=== PATIENT | male | born 1955 | race Caucasian/White ===

== ENCOUNTER 2017-03-15 07:30 | Inpatient (IN) | payer BC ==
[~2017-03-15 07:30] MED LIST: Bisacodyl 5 MG Tab PO PRN; EPINEPHrine 1:1000 1 MG/ML SDV ONE; Lactated Ringers 1,000 ML IV SCH; Lidocaine 1% 6 ML ONE; Lidocaine 1%/Sod Bicarbonate in NS 8.4% 1 ML Syringe IV PRN; Magnesium Hydroxide 400 MG/5 ML Susp 30 ML Cup PO PRN; Midazolam 1 MG/ML 2 ML SDV ONE; Ondansetron 4 MG/2 ML SDV IVPUSH PRN; Propofol 200 MG/20 ML SDV ONE; Rocuronium 50 MG/5 ML Vial ONE; Ropivacaine 0.5% 5 MG/ML 30 ML SDV ONE; Sodium Chloride 0.9% 10 ML Syringe FLUSH PRN; fentaNYL 250 MCG/5 ML SDV ONE
[2017-03-15] MEDS ORDERED: ceFAZolin 1 GM Vial ONE (07:37)
--- NOTE | 2017-03-15 08:04 | PCM.PREANE ---
Preanesthetic Assessment - Anesthesia/Transfusion/Family Hx Anesthesia History: Prior Anesthesia Without Reaction Family History of Anesthesia Reaction: No Transfusion History: No Prior Transfusion(s) - Review of Systems General: No Symptoms Pulmonary: No Symptoms Cardiovascular: No Symptoms Gastrointestinal: No symptoms Neurological: Numbness (fingers and toes) Other: Reports: Diabetes (gluco check 189 this AM) - Physical Assessment NPO Status Date: 03/14/17 NPO Status Time: 00:00 Pulse: 84 O2 Sat by Pulse Oximetry: 94 Respiratory Rate: 16 Blood Pressure: 146/75 Temperature: 36.8 C Height: 1.7 m Weight: 68.946 kg ASA Class: 3 Mental Status: Alert & Oriented x3 Airway Class: Mallampati = 1 Dentition: Reports: [place](s) Thyro-Mental Finger Breadths: 3 Mouth Opening Finger Breadths: 3 ROM/Head Extension: Full Lungs: Clear to auscultation, Normal respiratory effort Cardiovascular: Regular Rate, Regular Rhythm, No Murmurs - Lab Values: Laboratory Last Values MRSA (PCR) Negative 03/02/17 08:35 - Imaging/EKG Impressions: EKG on chart SR 83 - Allergies Allergies/Adverse Reactions: Allergies Allergy/AdvReac Type Severity Reaction Status Date / Time No Known Allergies Allergy Verified 03/12/17 10:43 - Anesthesia Plan Pre-Op Medication Ordered: None - Acknowledgements Anesthesia Type Planned: General Anesthesia, Regional Block (interscaline block for post op-pain control) Pt an Appropriate Candidate for the Planned Anesthesia: Yes Alternatives and Risks of Anesthesia Discussed w Pt/Guardian: Yes Pt/Guardian Understands and Agrees with Anesthesia Plan: Yes PreAnesthesia Questionnaire HEENT History: Reports: Hard of hearing, Impaired vision Other HEENT History: hearing aids, glasses Cardiovascular History: Reports: Hypertension Respiratory History: Reports: None Other Genitourinary History: testicular hypergonadotropic hypogoandism, erectile dysfunction [employer]ENTICE History: Reports: None Musculoskeletal History: Reports: Other (see below) Other Musculoskeletal History: total knee replacement, rotator cuff repair, C spine surgery, bilateral carpal tunnel surgery Neurological History: Reports: Neuropathy, diabetic Psychiatric History: Reports: Anxiety Endocrine/Metabolic History: Reports: Diabetes, type II Immunologic History: Reports: None Oncologic (Cancer) History: Reports: None Other Dermatologic History: L hand abcess from cat bite - Past Surgical History Head Surgeries/Procedures: Reports: None GI Surgical History: Reports: Colonoscopy - SUBSTANCE USE Smoking Status *Q: Current Some Day Smoker Tobacco Use Within Last Twelve Months: Snuff/Dip Second Hand Smoke Exposure: No Days Per Week of Alcohol Use: 0 Number of Drinks Per Day: 0 Total Drinks Per Week: 0 Recreational Drug Use History: No - HOME MEDS Home Medications: Home Meds Aspirin [Adult Low Dose Aspirin EC] 81 mg PO DAILY 09/10/15 [History] Cholecalciferol (Vitamin D3) [Vitamin D3] 5,000 unit PO DAILY 09/10/15 [History] LORazepam [Ativan] 1 mg PO BID 09/10/15 [History] Multivitamin [Multivitamins] 1 each PO DAILY 09/10/15 [History] [place]-3 Fatty Acids [[place]roll-3] 1 cap PO DAILY 09/10/15 [History] Sildenafil [Viagra] 50 mg PO ASDIRECTED 09/10/15 [History] Fluticasone Propionate [Flonase] 1 spray NASBOTH BEDTIME 03/12/17 [History] Insulin Aspart [NovoLOG] 10 units SQ TID 03/12/17 [History] Insulin Glargine,Hum.Rec.Anlog [Toujeo Solostar] 22 units SQ BEDTIME 03/12/17 [ History] Lisinopril 5 mg PO DAILY 03/12/17 [History] Pravastatin [Pravachol] 40 mg PO DAILY 03/12/17 [History] Sertraline [Zoloft] 50 mg PO DAILY 03/12/17 [History] - CURRENT (IN HOUSE) MEDS Current Meds: Current Medications Aspirin (Ecotrin) 325 mg PO DAILY KACI Bisacodyl (Dulcolax) 5 mg PO DAILY PRN PRN Reason: Constipation Morphine Sulfate 8 mg/Epinephrine HCl 0.3 mg/Cefuroxime Sodium 750 mg/Ketorolac Tromethamine 30 mg/Sodium Chloride 27.9 ml 0 mg .XX ONETIME ONE Stop: 03/15/17 09:01 Cyclobenzaprine HCl (Flexeril) 10 mg PO TID PRN PRN Reason: Spasms Docusate Sodium (Colace) 100 mg PO BID KACI Famotidine (Pepcid) 20 mg PO Q12H KACI Lactated Ringer's (Ringers, Lactated) 1,000 mls @ 125 mls/hr IV ASDIRECTED COUNT INCLUDES THE [facility] Cefazolin Sodium/Dextrose 2 gm (/ Premix) 50 mls @ 100 mls/hr IV Q8H COUNT INCLUDES THE [facility] Stop: 03/16/17 07:59 Lidocaine/Sodium Bicarbonate (Buffered Lidocaine 1% In Ns 8.4%) 0.25 ml IV ONETIME PRN PRN Reason: Prior to IV Start Stop: 03/15/17 16:00 Magnesium Hydroxide (Milk Of Magnesia) 30 ml PO BID PRN PRN Reason: Constipation Morphine Sulfate (Morphine) 2 mg IVPUSH Q2H PRN PRN Reason: Breakthrough Pain Naloxone HCl (Narcan) 0.1 mg IVPUSH Q5M PRN PRN Reason: Oversedation Stop: 03/15/17 07:06 Ondansetron HCl (Zofran) 4 mg IVPUSH Q6H PRN PRN Reason: Nausea/Vomiting Oxycodone/Acetaminophen (Percocet 325-5 Mg) 1 - 2 tab PO Q4H PRN PRN Reason: Pain Senna (Senna) 8.6 mg PO BID PRN PRN Reason: Constipation Sodium Chloride (Saline Flush) 10 ml FLUSH ASDIRECTED PRN PRN Reason: Keep Vein Open Stop: 03/15/17 18:00 Discontinued Medications Bupivacaine HCl (Marcaine 0.25%) Confirm Administered Dose 30 ml .ROUTE .STK- MED ONE Stop: 03/15/17 07:38 Cefazolin Sodium (Ancef) Confirm Administered Dose 2 gm .ROUTE .STK-MED ONE Stop: 03/15/17 07:17 Cefazolin Sodium (Ancef) Confirm Administered Dose 2 gm .ROUTE .STK-MED ONE Stop: 03/15/17 07:38 Epinephrine HCl (Adrenalin 1:1000) Confirm Administered Dose 1 mg .ROUTE .STK- MED ONE Stop: 03/15/17 07:07 Fentanyl (Sublimaze) Confirm Administered Dose 250 mcg .ROUTE .STK-MED ONE Stop: 03/15/17 07:12 Lidocaine HCl (Xylocaine-Mpf 1%) Confirm Administered Dose 6 mls @ as directed .ROUTE .STK-MED ONE Stop: 03/15/17 07:13 Iodine (Iodine 2% Mild Tincture) Confirm Administered Dose 30 ml .ROUTE .STK- MED ONE Stop: 03/15/17 07:38 Midazolam HCl (Versed 1 Mg/Ml) Confirm Administered Dose 2 mg .ROUTE .STK-MED ONE Stop: 03/15/17 07:12 Propofol (Diprivan 20 Ml) Confirm Administered Dose 200 mg .ROUTE .STK-MED ONE Stop: 03/15/17 07:12 Rocuronium [place] (Zemuron) Confirm Administered Dose 50 mg .ROUTE .STK-MED ONE Stop: 03/15/17 07:12 Ropivacaine (Naropin 0.5%) Confirm Administered Dose 30 ml .ROUTE .STK-MED ONE Stop: 03/15/17 07:08 Tranexamic Acid (Cyklokapron) Confirm Administered Dose 1,000 mg .ROUTE .ST- MED ONE Stop: 03/15/17 07:38
[2017-03-15] MEDS ORDERED: Morphine 8 MG, EPINEPHrine 0.3 MG, Cefuroxime 750 MG, Ketorolac 30 MG, Sodium Chloride ... ONE ×5 (09:00)
[2017-03-15] MEDS ORDERED: ePHEDrine/Normal Saline 25 MG/5 ML Syringe ONE (09:13)
[2017-03-15] MEDS: Bupivacaine 0.25% 30 ML SDV ONE ×2 (09:48→10:36)
[2017-03-15] MEDS ORDERED: Lactated Ringers 1,000 ML ONE (09:51)
[2017-03-15] MEDS: ceFAZolin 1 GM Vial ONE ×2 (09:53→10:31)
[2017-03-15] MEDS: Iodine/Sodium Iodide 2% Tincture 30 ML Bottle ONE ×2 (09:54→10:29)
[2017-03-15] MEDS ORDERED: SILDENAFIL 50 MG PO SCH (10:45)
[2017-03-15] MEDS ORDERED: fentaNYL 100 MCG/2 ML SDV IVPUSH PRN (11:24)
--- NOTE | 2017-03-15 11:26 | PCM.POSTAN ---
POST ANESTHESIA ASSESSMENT - MENTAL STATUS Mental Status: alert, oriented - VITAL SIGNS Pulse Rate: 99 SaO2: 100 Resp Rate: 17 Blood Pressure: 156/94 Temperature: 36.6 C - RESPIRATORY Respiratory Status: respiratory rate WNL, airway patent, O2 saturation stable - CARDIOVASCULAR CV Status: pulse rate WNL, blood pressure stable - GASTROINTESTINAL GI Status: no symptoms - PAIN Pain Score: 0 - POST OP HYDRATION Hydration Status: adequate & stable - OBSERVATIONS Free Text/Narrative:: no anesthesia complications noted
--- NOTE | 2017-03-15 11:56 | PCM.SN ---
- Free Text/Narrative Note: Note: 03/15/2017 1150 141/65 78 98% 14 Surgeon and pt request post-op pain control for right shoulder surgery risk of block failure, facial numbness, site infection, and chronic pain discussed with pt and agreed to proceed. All standard monitors est. EKG, BP, Pulse Ox, 2L O2 and 2ml versed, 2ml fentanyl pre-op dx. left shoulder arthroplasty post-op dx left reverse total shoulder pt for interscalene block placement all standard monitors est. pt ID time out performed IV sedation 2ml versed, 2ml fentanyl, 2L NC O2, sterile prep and drape of left neck and shoulder U/S placed with visualization of brachial plexus from clavicle to cricoid local skin infiltration 22ga. Stimplex A insulated needle visualized at brachial plexus nerve stimulator at .9 Rashida Amps stop at .4 Rashida Amps with good bicep twitch with 1ml NaCl and lose of twitch neg aspirations every 5ml of 0.5% ropivacaine and 1:200,000 epi total of 30ml injected all done with U/S guidance needle withdrawn no complications noted pt tolerated procedure well block settling in start procedure at 0815 end procedure at 0832 132/67 92 98% 14
[2017-03-15] MEDS ORDERED: Naloxone 0.4 MG/ML SDV IVPUSH PRN (12:00)
--- NOTE | 2017-03-15 12:10 | CR ---
Left shoulder: AP view of the left shoulder was obtained. Comparison: No previous radiograph, previous MRI left shoulder study of 10/23/16. Left shoulder prosthesis is seen. Components are aligned. Underlying bony structures are intact. Impression: 1. Satisfactory appearance of recently placed left shoulder prosthesis. Diagnostic code #2
--- NOTE | 2017-03-15 12:20 | CR ---
Left shoulder: Single fluoroscopic spot view was obtained of the left shoulder utilizing C-arm device in the operating suite. Left shoulder prosthesis is seen. Components are aligned. Underlying bony structures are grossly intact. Fluoroscopy time given as 2.9 seconds. Impression: 1. Fluoroscopic study showing left shoulder prosthesis. Diagnostic code #2
[2017-03-15] MEDS: Acetaminophen/oxyCODONE 325-5 MG Tab PO PRN ×3 (12:56→21:47)
[2017-03-15] MEDS ORDERED: Insulin Aspart 100 Units/ML 3 ML Pen SUBCUT SCH ×2 (15:00→17:00)
--- NOTE | 2017-03-15 15:10 | PCM.CONSN ---
- General Info Date of Service: 03/15/17 Admission Dx/Problem (Free Text): 61 year old male with PMH: DM, OA, HTN is post op s/p reverse left shoulder arthroplasty and subscapular repair. The patient has a history left shoulder rotator cuff tear. Functional Status: Reports: pain controlled, tolerating diet, ambulating, urinating - Review of Systems General: Reports: No Symptoms HEENT: Reports: no symptoms Pulmonary: Reports: no symptoms Cardiovascular: Reports: No Symptoms Gastrointestinal: Reports: No symptoms Genitourinary: Reports: no symptoms Musculoskeletal: Reports: no symptoms Skin: Reports: no symptoms Neurological: Reports: No Symptoms Psychiatric: Reports: no symptoms - Patient Data Vitals - most recent: Last Vital Signs Temp 36.6 C 03/15/17 12:09 Pulse 99 03/15/17 12:09 Resp 14 03/15/17 12:09 BP 132/76 03/15/17 12:09 Pulse Ox 95 03/15/17 12:09 Weight - most recent: 72.303 kg I&O - last 24 hours: Intake & Output 03/15/17 03/15/17 03/15/17 06:59 14:59 22:59 Intake Total 300 Output Total 150 Balance 150 Lab Results last 24 hrs: Laboratory Results - last 24 hr 03/15/17 Range/Units 11:46 POC Glucose 228 H (70-105) mg/dL Med Orders - Current: Current Medications Aspirin (Ecotrin) 325 mg PO DAILY KACI Bisacodyl (Dulcolax) 5 mg PO DAILY PRN PRN Reason: Constipation Cyclobenzaprine HCl (Flexeril) 10 mg PO TID PRN PRN Reason: Spasms Docusate Sodium (Colace) 100 mg PO BID KACI Famotidine (Pepcid) 20 mg PO Q12H KACI Fentanyl (Sublimaze) 50 mcg IVPUSH Q5M PRN PRN Reason: PAIN Stop: 03/15/17 18:00 Flunisolide (Nasalide Nasal [place]) 0 ml NASBOTH BEDTIME KACI Cefazolin Sodium/Dextrose 2 gm (/ Premix) 50 mls @ 100 mls/hr IV Q8H KACI Stop: 03/16/17 07:59 Insulin Aspart (Novolog) 10 unit SUBCUT TID [facility] Insulin Detemir (Levemir) 11 unit SUBCUT ACBREAKFASTANDBED [facility] Lisinopril (Prinivil) 5 mg PO DAILY [facility] Lorazepam (Ativan) 1 mg PO BID KACI Magnesium Hydroxide (Milk Of Magnesia) 30 ml PO BID PRN PRN Reason: Constipation Morphine Sulfate (Morphine) 2 mg IVPUSH Q2H PRN PRN Reason: Breakthrough Pain Ondansetron HCl (Zofran) 4 mg IVPUSH Q6H PRN PRN Reason: Nausea/Vomiting Oxycodone/Acetaminophen (Percocet 325-5 Mg) 1 - 2 tab PO Q4H PRN PRN Reason: Pain Last Admin: 03/15/17 12:56 Dose: 2 tab Senna (Senna) 8.6 mg PO BID PRN PRN Reason: Constipation Sertraline HCl (Zoloft) 50 mg PO DAILY KACI Simvastatin (Zocor) 20 mg PO DAILY [facility] Sodium Chloride (Saline Flush) 10 ml FLUSH ASDIRECTED PRN PRN Reason: Keep Vein Open Stop: 03/15/17 18:00 Discontinued Medications Bupivacaine HCl (Marcaine 0.25%) Confirm Administered Dose 30 ml .ROUTE .STK- MED ONE Stop: 03/15/17 07:38 Last Admin: 03/15/17 10:36 Dose: 30 ml Cefazolin Sodium (Ancef) Confirm Administered Dose 2 gm .ROUTE .STK-MED ONE Stop: 03/15/17 07:17 Last Admin: 03/15/17 10:31 Dose: 2 gm Cefazolin Sodium (Ancef) Confirm Administered Dose 2 gm .ROUTE .STK-MED ONE Stop: 03/15/17 07:38 Morphine Sulfate 8 mg/Epinephrine HCl 0.3 mg/Cefuroxime Sodium 750 mg/Ketorolac Tromethamine 30 mg/Sodium Chloride 27.9 ml 0 mg .XX ONETIME ONE Stop: 03/15/17 09:01 Ephedrine Sulfate (Ephedrine In Ns) Confirm Administered Dose 25 mg .ROUTE .STK- MED ONE Stop: 03/15/17 09:14 Epinephrine HCl (Adrenalin 1:1000) Confirm Administered Dose 1 mg .ROUTE .STK- MED ONE Stop: 03/15/17 07:07 Fentanyl (Sublimaze) Confirm Administered Dose 250 mcg .ROUTE .STK-MED ONE Stop: 03/15/17 07:12 Lactated Ringer's (Ringers, Lactated) 1,000 mls @ 125 mls/hr IV ASDIRECTED [facility] Last Admin: 03/15/17 08:05 Dose: 125 mls/hr Lidocaine HCl (Xylocaine-Mpf 1%) Confirm Administered Dose 6 mls @ as directed .ROUTE .STK-MED ONE Stop: 03/15/17 07:13 Lactated Ringer's (Ringers, Lactated) Confirm Administered Dose 1,000 mls @ as directed .ROUTE .STK-MED ONE Stop: 03/15/17 09:52 Iodine (Iodine 2% Mild Tincture) Confirm Administered Dose 30 ml .ROUTE .STK- MED ONE Stop: 03/15/17 07:38 Last Admin: 03/15/17 10:29 Dose: 18 ml Lidocaine/Sodium Bicarbonate (Buffered Lidocaine 1% In Ns 8.4%) 0.25 ml IV ONETIME PRN PRN Reason: Prior to IV Start Stop: 03/15/17 16:00 Last Admin: 03/15/17 08:04 Dose: 0.25 ml Midazolam HCl (Versed 1 Mg/Ml) Confirm Administered Dose 2 mg .ROUTE .STK-MED ONE Stop: 03/15/17 07:12 Naloxone HCl (Narcan) 0.1 mg IVPUSH Q5M PRN PRN Reason: Oversedation Stop: 03/15/17 12:16 Non-Formulary Medication (Sildenafil) 50 mg PO ASDIRECTED [facility] Propofol (Diprivan 20 Ml) Confirm Administered Dose 200 mg .ROUTE .STK-MED ONE Stop: 03/15/17 07:12 Rocuronium [place] (Zemuron) Confirm Administered Dose 50 mg .ROUTE .STK-MED ONE Stop: 03/15/17 07:12 Ropivacaine (Naropin 0.5%) Confirm Administered Dose 30 ml .ROUTE .STK-MED ONE Stop: 03/15/17 07:08 Tranexamic Acid (Cyklokapron) Confirm Administered Dose 1,000 mg .ROUTE .STK- MED ONE Stop: 03/15/17 07:38 Last Admin: 03/15/17 09:55 Dose: 1,000 mg - Exam Quality Assessment: urine catheter, DVT prophylaxis General: alert, oriented, cooperative, no acute distress HEENT: Pupils equal, Pupils reactive, EOMI Neck: supple, trachea midline Lungs: Normal respiratory effort Cardiovascular: Regular Rate, Regular Rhythm Abdomen: bowel sounds present, soft, no tenderness, no distension (Male) Exam: Deferred Back Exam: normal inspection Extremities: normal pulses Skin: warm Wound/Incisions: dressing dry and intact Neurological: no new focal deficit, normal speech Psy/Mental Status: alert, normal affect, normal mood Consult PN Assessment/Plan POD#: 0 Procedures: Procedures ASSAY OF BLOOD LIPOPROTEIN (07/10/15) ASSAY OF GONADOTROPIN (FSH) (07/30/14) ASSAY OF GONADOTROPIN (LH) (07/30/14) ASSAY OF LIPOPROTEIN (07/10/15) ASSAY OF TOTAL TESTOSTERONE (07/30/14) CHEST X-RAY 2VW FRONTAL&LATL (09/20/15) COMPLETE CBC W/AUTO DIFF WBC (09/16/15) COMPREHEN METABOLIC PANEL (09/16/15) DIAGNOSTIC COLONOSCOPY (09/11/15) GAIT TRAINING THERAPY (03/21/14) GLUCOSE BLOOD TEST (09/24/15) GLYCOSYLATED HEMOGLOBIN TEST (02/18/16) INCISE FINGER TENDON SHEATH (09/24/15) MANUAL THERAPY 1/> REGIONS (03/21/14) MASSAGE THERAPY (03/21/14) MICROALBUMIN QUANTITATIVE (07/10/15) MR-STAPH DNA AMP PROBE (09/16/15) MRI JOINT UPR EXTREM W/O DYE (10/23/16) PROTHROMBIN TIME (09/16/15) PT EVALUATION (03/07/14) RBC SED RATE AUTOMATED (02/25/15) ROUTINE VENIPUNCTURE (02/18/16) THERAPEUTIC EXERCISES (03/21/14) URINALYSIS AUTO W/O SCOPE (12/10/15) URINALYSIS AUTO W/SCOPE (07/10/15) X-RAY EXAM OF HAND (02/25/15) (1) Diabetes SNOMED Code(s): 16494252 Code(s): E11.9 - TYPE 2 DIABETES MELLITUS WITHOUT COMPLICATIONS Current Visit: Yes Qualifiers: Diabetes mellitus type: type 2 Diabetes mellitus complication detail: with diabetic retinopathy (2) Status post reverse total arthroplasty of left shoulder SNOMED Code(s): 989373796, 362760645 Code(s): Z96.612 - PRESENCE OF LEFT ARTIFICIAL SHOULDER JOINT Current Visit : Yes Problem List Initiated/Reviewed/Updated: Yes Plan: Impression: POST OP DAY 0 Left Reverse Total Shoulder Arthroplasty Chronic HTN DM II Hyperlipidemia Plan: IS/RT PT/OT DVT/Pain mgt CM/SW Home meds
[2017-03-15] MEDS: ceFAZolin 2 GM in Premix Bag 1 BAG IV SCH ×2 (16:03→23:07)
[2017-03-15] MEDS: Famotidine 20 MG Tab PO SCH (20:54)
[2017-03-15] MEDS: LORazepam 1 MG Tab PO SCH (20:55)
[2017-03-15] MEDS: Docusate Sodium 100 MG Cap PO SCH (20:55)
[2017-03-15] MEDS ORDERED: Sennosides 8.6 MG Tab PO PRN (21:00)
[2017-03-15] MEDS: Cyclobenzaprine 10 MG Tab PO PRN (21:47)
[2017-03-15] MEDS: Insulin Aspart 100 Units/ML 3 ML Pen SUBCUT SCH ×2 (21:47→22:01)
[2017-03-15] MEDS: Insulin Detemir 100 Units/ML 3 ML Pen SUBCUT SCH (21:48)
[2017-03-15] MEDS: Morphine 2 MG/ML Syringe IVPUSH PRN (23:20)
[2017-03-16] MEDS: Acetaminophen/oxyCODONE 325-5 MG Tab PO PRN ×3 (02:00→10:27)
[2017-03-16] MEDS: Morphine 2 MG/ML Syringe IVPUSH PRN ×2 (05:05→09:42)
[2017-03-16] MEDS: Cyclobenzaprine 10 MG Tab PO PRN (06:27)
[2017-03-16] MEDS: ceFAZolin 2 GM in Premix Bag 1 BAG IV SCH (06:30)
[2017-03-16] MEDS: Famotidine 20 MG Tab PO SCH (08:13)
[2017-03-16 08:14] VITALS: BP 129/69
[2017-03-16] MEDS: LORazepam 1 MG Tab PO SCH (08:14)
[2017-03-16] MEDS: Docusate Sodium 100 MG Cap PO SCH (08:14)
[2017-03-16] MEDS: Insulin Detemir 100 Units/ML 3 ML Pen SUBCUT SCH (08:15)
[2017-03-16] MEDS: Insulin Aspart 100 Units/ML 3 ML Pen SUBCUT SCH (08:15)
--- NOTE | 2017-03-16 08:58 | PCM.CONSN ---
- General Info Date of Service: 03/16/17 Admission Dx/Problem (Free Text): S/P left reverse total shoulder POD #[address] Olivera Doing well; pain under fair control. Working with OT/PT Hgb 12.9 VSS. Functional Status: Reports: pain controlled, tolerating diet, ambulating, urinating. Denies: new symptoms - Review of Systems General: Reports: No Symptoms HEENT: Reports: no symptoms Pulmonary: Reports: no symptoms Cardiovascular: Reports: No Symptoms Gastrointestinal: Reports: No symptoms Genitourinary: Reports: no symptoms Musculoskeletal: Reports: shoulder pain Skin: Reports: no symptoms Neurological: Reports: No Symptoms Psychiatric: Reports: no symptoms - Patient Data Vitals - most recent: Last Vital Signs Temp 98.8 F 03/16/17 08:12 Pulse 113 H 03/16/17 08:12 Resp 14 03/16/17 08:12 BP 129/69 03/16/17 08:14 Pulse Ox 93 L 03/16/17 08:12 Weight - most recent: 160 lb 6.4 oz I&O - last 24 hours: Intake & Output 03/15/17 03/16/17 03/16/17 22:59 06:59 14:59 Intake Total 180 1400 Output Total 600 1100 Balance -420 300 Lab Results last 24 hrs: Laboratory Results - last 24 hr 03/15/17 03/15/17 03/15/17 Range/Units 11:46 15:16 17:32 WBC (4.23-9.07) K/mm3 RBC (4.63-6.08) M/mm3 Hgb (13.7-17.5) gm/L Hct (40.1-51.0) % MCV (79.0-92.2) fl MCH (25.7-32.2) pg MCHC (32.2-35.5) g/dl RDW Std Deviation (35.1-43.9) fL Plt Count (163-337) K/mm3 MPV (9.4-12.3) fl Neut % (Auto) (34.0-67.9) % Lymph % (Auto) (21.8-53.1) % [place] % (Auto) (5.3-12.2) % Eos % (Auto) (0.8-7.0) Baso % (Auto) (0.1-1.2) % Neut # (Auto) (1.78-5.38) K/mm3 Lymph # (Auto) (1.32-3.57) K/mm3 [place] # (Auto) (0.30-0.82) K/mm3 Eos # (Auto) (0.04-0.54) K/mm3 Baso # (Auto) (0.01-0.08) K/mm3 Manual Slide Review Sodium (136-145) mEq/L Potassium (3.5-5.1) mEq/L Chloride (98-107) mEq/L Carbon Dioxide (21-32) mEq/L Anion Gap (5-15) BUN (7-18) mg/dL Creatinine (0.7-1.3) mg/dL Est Cr Clr Drug Dosing mL/min Estimated GFR (MDRD) (>60) mL/min BUN/Creatinine Ratio (14-18) Glucose (74-106) mg/dL POC Glucose 228 H 199 H 238 H (70-105) mg/dL Calcium (8.5-10.1) mg/dL Total Bilirubin (0.2-1.0) mg/dL AST (15-37) U/L ALT (16-63) U/L Alkaline Phosphatase (46-116) U/L Total Protein (6.4-8.2) g/dl Albumin (3.4-5.0) g/dl Globulin gm/dL Albumin/Globulin Ratio (1-2) 03/15/17 03/16/17 03/16/17 Range/Units 21:20 04:48 04:48 WBC 10.08 H (4.23-9.07) K/mm3 RBC 4.30 L (4.63-6.08) M/mm3 Hgb 12.9 L (13.7-17.5) gm/L Hct 37.8 L (40.1-51.0) % MCV 87.9 (79.0-92.2) fl MCH 30.0 (25.7-32.2) pg MCHC 34.1 (32.2-35.5) g/dl RDW Std Deviation 39.6 (35.1-43.9) fL Plt Count 168 (163-337) K/mm3 MPV 8.9 L (9.4-12.3) fl Neut % (Auto) 78.9 H (34.0-67.9) % Lymph % (Auto) 8.3 L (21.8-53.1) % [place] % (Auto) 12.5 H (5.3-12.2) % Eos % (Auto) 0.1 L (0.8-7.0) Baso % (Auto) 0.0 L (0.1-1.2) % Neut # (Auto) 7.95 H (1.78-5.38) K/mm3 Lymph # (Auto) 0.84 L (1.32-3.57) K/mm3 [place] # (Auto) 1.26 H (0.30-0.82) K/mm3 Eos # (Auto) 0.01 L (0.04-0.54) K/mm3 Baso # (Auto) 0.00 L (0.01-0.08) K/mm3 Manual Slide Review Abnormal smear Sodium 134 L (136-145) mEq/L Potassium 4.1 (3.5-5.1) mEq/L Chloride 100 (98-107) mEq/L Carbon Dioxide 27 (21-32) mEq/L Anion Gap 11.1 (5-15) BUN 12 (7-18) mg/dL Creatinine 0.9 (0.7-1.3) mg/dL Est Cr Clr Drug Dosing 81.60 mL/min Estimated GFR (MDRD) > 60 (>60) mL/min BUN/Creatinine Ratio 13.3 L (14-18) Glucose 211 H (74-106) mg/dL POC Glucose 176 H (70-105) mg/dL Calcium 8.6 (8.5-10.1) mg/dL Total Bilirubin 0.7 (0.2-1.0) mg/dL AST 14 L (15-37) U/L ALT 23 (16-63) U/L Alkaline Phosphatase 74 (46-116) U/L Total Protein 6.3 L (6.4-8.2) g/dl Albumin 3.5 (3.4-5.0) g/dl Globulin 2.8 gm/dL Albumin/Globulin Ratio 1.3 (1-2) 03/16/17 Range/Units 06:46 WBC (4.23-9.07) K/mm3 RBC (4.63-6.08) M/mm3 Hgb (13.7-17.5) gm/L Hct (40.1-51.0) % MCV (79.0-92.2) fl MCH (25.7-32.2) pg MCHC (32.2-35.5) g/dl RDW Std Deviation (35.1-43.9) fL Plt Count (163-337) K/mm3 MPV (9.4-12.3) fl Neut % (Auto) (34.0-67.9) % Lymph % (Auto) (21.8-53.1) % [place] % (Auto) (5.3-12.2) % Eos % (Auto) (0.8-7.0) Baso % (Auto) (0.1-1.2) % Neut # (Auto) (1.78-5.38) K/mm3 Lymph # (Auto) (1.32-3.57) K/mm3 [place] # (Auto) (0.30-0.82) K/mm3 Eos # (Auto) (0.04-0.54) K/mm3 Baso # (Auto) (0.01-0.08) K/mm3 Manual Slide Review Sodium (136-145) mEq/L Potassium (3.5-5.1) mEq/L Chloride (98-107) mEq/L Carbon Dioxide (21-32) mEq/L Anion Gap (5-15) BUN (7-18) mg/dL Creatinine (0.7-1.3) mg/dL Est Cr Clr Drug Dosing mL/min Estimated GFR (MDRD) (>60) mL/min BUN/Creatinine Ratio (14-18) Glucose (74-106) mg/dL POC Glucose 201 H (70-105) mg/dL Calcium (8.5-10.1) mg/dL Total Bilirubin (0.2-1.0) mg/dL AST (15-37) U/L ALT (16-63) U/L Alkaline Phosphatase (46-116) U/L Total Protein (6.4-8.2) g/dl Albumin (3.4-5.0) g/dl Globulin gm/dL Albumin/Globulin Ratio (1-2) Med Orders - Current: Current Medications Aspirin (Ecotrin) 325 mg PO DAILY [facility] Last Admin: 03/16/17 08:14 Dose: 325 mg Bisacodyl (Dulcolax) 5 mg PO DAILY PRN PRN Reason: Constipation Cyclobenzaprine HCl (Flexeril) 10 mg PO TID PRN PRN Reason: Spasms Last Admin: 03/16/17 06:27 Dose: 10 mg Docusate Sodium (Colace) 100 mg PO BID [facility] Last Admin: 03/16/17 08:14 Dose: 100 mg Famotidine (Pepcid) 20 mg PO Q12H [facility] Last Admin: 03/16/17 08:13 Dose: 20 mg Flunisolide (Nasalide Nasal [place]) 0 ml NASBOTH BEDTIME [facility] Last Admin: 03/15/17 20:56 Dose: 2 spray Insulin Aspart (Novolog) 0 unit SUBCUT QIDACANDBED [facility] PRN Reason: Protocol Last Admin: 03/16/17 08:15 Dose: 4 units Insulin Detemir (Levemir) 11 unit SUBCUT ACBREAKFASTANDBED [facility] Last Admin: 03/16/17 08:15 Dose: 11 units Lisinopril (Prinivil) 5 mg PO DAILY [facility] Last Admin: 03/16/17 08:14 Dose: 5 mg Lorazepam (Ativan) 1 mg PO BID [facility] Last Admin: 03/16/17 08:14 Dose: 1 mg Magnesium Hydroxide (Milk Of Magnesia) 30 ml PO BID PRN PRN Reason: Constipation Morphine Sulfate (Morphine) 2 mg IVPUSH Q2H PRN PRN Reason: Breakthrough Pain Last Admin: 03/16/17 05:05 Dose: 2 mg Ondansetron HCl (Zofran) 4 mg IVPUSH Q6H PRN PRN Reason: Nausea/Vomiting Last Admin: 03/15/17 21:47 Dose: 4 mg Oxycodone/Acetaminophen (Percocet 325-5 Mg) 1 - 2 tab PO Q4H PRN PRN Reason: Pain Last Admin: 03/16/17 06:27 Dose: 2 tab Senna (Senna) 8.6 mg PO BID PRN PRN Reason: Constipation Sertraline HCl (Zoloft) 50 mg PO DAILY [facility] Last Admin: 03/16/17 08:14 Dose: 50 mg Simvastatin (Zocor) 20 mg PO DAILY [facility] Last Admin: 03/16/17 08:14 Dose: 20 mg Discontinued Medications Bupivacaine HCl (Marcaine 0.25%) Confirm Administered Dose 30 ml .ROUTE .STK- MED ONE Stop: 03/15/17 07:38 Last Admin: 03/15/17 10:36 Dose: 30 ml Cefazolin Sodium (Ancef) Confirm Administered Dose 2 gm .ROUTE .STK-MED ONE Stop: 03/15/17 07:17 Last Admin: 03/15/17 10:31 Dose: 2 gm Cefazolin Sodium (Ancef) Confirm Administered Dose 2 gm .ROUTE .STK-MED ONE Stop: 03/15/17 07:38 Morphine Sulfate 8 mg/Epinephrine HCl 0.3 mg/Cefuroxime Sodium 750 mg/Ketorolac Tromethamine 30 mg/Sodium Chloride 27.9 ml 0 mg .XX ONETIME ONE Stop: 03/15/17 09:01 Last Admin: 03/15/17 19:00 Dose: Not Given Ephedrine Sulfate (Ephedrine In Ns) Confirm Administered Dose 25 mg .ROUTE .STK- MED ONE Stop: 03/15/17 09:14 Epinephrine HCl (Adrenalin 1:1000) Confirm Administered Dose 1 mg .ROUTE .STK- MED ONE Stop: 03/15/17 07:07 Fentanyl (Sublimaze) Confirm Administered Dose 250 mcg .ROUTE .STK-MED ONE Stop: 03/15/17 07:12 Fentanyl (Sublimaze) 50 mcg IVPUSH Q5M PRN PRN Reason: PAIN Stop: 03/15/17 18:00 Lactated Ringer's (Ringers, Lactated) 1,000 mls @ 125 mls/hr IV ASDIRECTED [facility] Last Admin: 03/15/17 08:05 Dose: 125 mls/hr Cefazolin Sodium/Dextrose 2 gm (/ Premix) 50 mls @ 100 mls/hr IV Q8H [facility] Stop: 03/16/17 07:59 Last Admin: 03/16/17 06:30 Dose: 100 mls/hr Lidocaine HCl (Xylocaine-Mpf 1%) Confirm Administered Dose 6 mls @ as directed .ROUTE .STK-MED ONE Stop: 03/15/17 07:13 Lactated Ringer's (Ringers, Lactated) Confirm Administered Dose 1,000 mls @ as directed .ROUTE .STK-MED ONE Stop: 03/15/17 09:52 Insulin Aspart (Novolog) 10 unit SUBCUT TID [facility] Last Admin: 03/15/17 16:04 Dose: Not Given Insulin Aspart (Novolog) 10 unit SUBCUT TIDMEALS [facility] Last Admin: 03/15/17 17:52 Dose: 8 units Iodine (Iodine 2% Mild Tincture) Confirm Administered Dose 30 ml .ROUTE .STK- MED ONE Stop: 03/15/17 07:38 Last Admin: 03/15/17 10:29 Dose: 18 ml Lidocaine/Sodium Bicarbonate (Buffered Lidocaine 1% In Ns 8.4%) 0.25 ml IV ONETIME PRN PRN Reason: Prior to IV Start Stop: 03/15/17 16:00 Last Admin: 03/15/17 08:04 Dose: 0.25 ml Midazolam HCl (Versed 1 Mg/Ml) Confirm Administered Dose 2 mg .ROUTE .STK-MED ONE Stop: 03/15/17 07:12 Naloxone HCl (Narcan) 0.1 mg IVPUSH Q5M PRN PRN Reason: Oversedation Stop: 03/15/17 12:16 Non-Formulary Medication (Sildenafil) 50 mg PO ASDIRECTED [facility] Propofol (Diprivan 20 Ml) Confirm Administered Dose 200 mg .ROUTE .STK-MED ONE Stop: 03/15/17 07:12 Rocuronium [place] (Zem[place]) Confirm Administered Dose 50 mg .ROUTE .STK-MED ONE Stop: 03/15/17 07:12 Ropivacaine (Naropin 0.5%) Confirm Administered Dose 30 ml .ROUTE .STK-MED ONE Stop: 03/15/17 07:08 Sodium Chloride (Saline Flush) 10 ml FLUSH ASDIRECTED PRN PRN Reason: Keep Vein Open Stop: 03/15/17 18:00 Tranexamic Acid (Cyklokapron) Confirm Administered Dose 1,000 mg .ROUTE .STK- MED ONE Stop: 03/15/17 07:38 Last Admin: 03/15/17 09:55 Dose: 1,000 mg - Exam Quality Assessment: DVT prophylaxis General: alert, oriented, cooperative, no acute distress HEENT: Pupils equal, Pupils reactive, EOMI, Mucous membr. moist/pink Neck: supple Lungs: Clear to auscultation, Normal respiratory effort Cardiovascular: Regular Rate, Regular Rhythm Abdomen: bowel sounds present, soft, no tenderness (Male) Exam: Deferred Extremities: no edema Peripheral Pulses: 1+: dorsalis pedis (L), dorsalis pedis (R), 2+: radial (L), radial (R) Skin: warm, dry Wound/Incisions: dressing dry and intact Neurological: no new focal deficit Psy/Mental Status: alert, normal affect, normal mood Consult PN Assessment/Plan POD#: 1 Procedures: Procedures ASSAY OF BLOOD LIPOPROTEIN (07/10/15) ASSAY OF GONADOTROPIN (FSH) (07/30/14) ASSAY OF GONADOTROPIN (LH) (07/30/14) ASSAY OF LIPOPROTEIN (07/10/15) ASSAY OF TOTAL TESTOSTERONE (07/30/14) CHEST X-RAY 2VW FRONTAL&LATL (09/20/15) COMPLETE CBC W/AUTO DIFF WBC (09/16/15) COMPREHEN METABOLIC PANEL (09/16/15) DIAGNOSTIC COLONOSCOPY (09/11/15) GAIT TRAINING THERAPY (03/21/14) GLUCOSE BLOOD TEST (09/24/15) GLYCOSYLATED HEMOGLOBIN TEST (02/18/16) INCISE FINGER TENDON SHEATH (09/24/15) MANUAL THERAPY 1/> REGIONS (03/21/14) MASSAGE THERAPY (03/21/14) MICROALBUMIN QUANTITATIVE (07/10/15) MR-STAPH DNA AMP PROBE (09/16/15) MRI JOINT UPR EXTREM W/O DYE (10/23/16) PROTHROMBIN TIME (09/16/15) PT EVALUATION (03/07/14) RBC SED RATE AUTOMATED (02/25/15) ROUTINE VENIPUNCTURE (02/18/16) THERAPEUTIC EXERCISES (03/21/14) URINALYSIS AUTO W/O SCOPE (12/10/15) URINALYSIS AUTO W/SCOPE (07/10/15) X-RAY EXAM OF HAND (02/25/15) (1) Status post reverse total arthroplasty of left shoulder SNOMED Code(s): 126404930, 979820347 Code(s): Z96.612 - PRESENCE OF LEFT ARTIFICIAL SHOULDER JOINT Priority: High Current Visit: Yes (2) Osteoarthritis SNOMED Code(s): 152699773 Code(s): M19.90 - UNSPECIFIED OSTEOARTHRITIS, UNSPECIFIED SITE Priority: High Current Visit: Yes Qualifiers: Osteoarthritis location: shoulder Osteoarthritis type: primary Laterality : left Qualified Code(s): M19.012 - Primary osteoarthritis, left shoulder (3) HLD (hyperlipidemia) SNOMED Code(s): 38064646 Code(s): E78.5 - HYPERLIPIDEMIA, UNSPECIFIED Priority: Medium Current Visit: No Qualifiers: Hyperlipidemia type: unspecified Qualified Code(s): E78.5 - Hyperlipidemia , unspecified (4) HTN (hypertension) SNOMED Code(s): 92390533 Code(s): I10 - ESSENTIAL (PRIMARY) HYPERTENSION Priority: Medium Current Visit: No Qualifiers: Hypertension type: essential hypertension Qualified Code(s): I10 - Essential (primary) hypertension (5) Diabetes SNOMED Code(s): 13048382 Code(s): E11.9 - TYPE 2 DIABETES MELLITUS WITHOUT COMPLICATIONS Priority: Medium Current Visit: No Qualifiers: Diabetes mellitus type: type 2 Diabetes mellitus complication detail: with diabetic retinopathy Proliferative retinopathy type: unspecified Problem List Initiated/Reviewed/Updated: Yes Plan: I/P: S/P Lt reverse total shoulder with Dr. Olivera-- POD #1 -Pain management and DVT prophylaxis per primary team- Orthopedics -PT/OT -IS/RT -VSS -Hgb 12.9 Chronic conditions: DM- cont home meds; sugars 200's HTN- stable HLD Other: GI prophylax with pepcid CM/SW for assistance with DC planning- plans DC home with family OK to dc home today from Hospitalist standpoint; medically stable. Patient is a Full Code. Thank you for allowing us to participate in patient's care; do not hesitate to contact with questions/concerns.
[2017-03-16] MEDS ORDERED: Sertraline 50 MG Tab PO SCH (09:00)
[2017-03-16] MEDS ORDERED: Simvastatin 20 MG Tab PO SCH (09:00)
[2017-03-16] MEDS ORDERED: Lisinopril 5 MG Tab PO SCH (09:00)
[2017-03-16] MEDS ORDERED: Aspirin 325 MG Tab.EC PO SCH (09:00)
--- NOTE | 2017-03-16 09:35 | PCM48HPAN ---
Post Anesthesia Note - EVALUATION WITHIN 48HRS OF ANESTHETIC Vital Signs in Normal Range: Yes Patient Participated in Evaluation: Yes Respiratory Function Stable: Yes Airway Patent: Yes Cardiovascular Function Stable: Yes Hydration Status Stable: Yes Pain Control Satisfactory: No (see note) Nausea and Vomiting Control Satisfactory: Yes Mental Status Recovered: Yes - COMMENTS/OBSERVATIONS Free Text/Narrative:: Patient states miscommunication noted per nursing staff last night on when he could have additional pain medicine. Charge nurse Melyssa informed, and nurse responsibe will be educated. No other c/o noted at this time.
--- NOTE | 2017-03-16 10:30 | PCM.SURGPN ---
- General Info Date of Service: 03/16/17 POD#: 1 Functional Status: Reports: pain controlled, tolerating diet, ambulating, urinating. Denies: new symptoms - Review of Systems Musculoskeletal: Reports: other (The pt reports his pain is under better control this morning.) - Patient Data Vitals - most recent: Last Vital Signs Temp 98.8 F 03/16/17 08:12 Pulse 113 H 03/16/17 08:12 Resp 14 03/16/17 08:12 BP 129/69 03/16/17 08:14 Pulse Ox 93 L 03/16/17 08:12 Weight - most recent: 160 lb 6.4 oz I&O - last 24 hours: Intake & Output 03/15/17 03/16/17 03/16/17 22:59 06:59 14:59 Intake Total 180 1400 Output Total 600 1100 Balance -420 300 Lab Results last 24 hrs: Laboratory Results - last 24 hr 03/15/17 03/15/17 03/15/17 Range/Units 11:46 15:16 17:32 WBC (4.23-9.07) K/mm3 RBC (4.63-6.08) M/mm3 Hgb (13.7-17.5) gm/L Hct (40.1-51.0) % MCV (79.0-92.2) fl MCH (25.7-32.2) pg MCHC (32.2-35.5) g/dl RDW Std Deviation (35.1-43.9) fL Plt Count (163-337) K/mm3 MPV (9.4-12.3) fl Neut % (Auto) (34.0-67.9) % Lymph % (Auto) (21.8-53.1) % [place] % (Auto) (5.3-12.2) % Eos % (Auto) (0.8-7.0) Baso % (Auto) (0.1-1.2) % Neut # (Auto) (1.78-5.38) K/mm3 Lymph # (Auto) (1.32-3.57) K/mm3 [place] # (Auto) (0.30-0.82) K/mm3 Eos # (Auto) (0.04-0.54) K/mm3 Baso # (Auto) (0.01-0.08) K/mm3 Manual Slide Review Sodium (136-145) mEq/L Potassium (3.5-5.1) mEq/L Chloride (98-107) mEq/L Carbon Dioxide (21-32) mEq/L Anion Gap (5-15) BUN (7-18) mg/dL Creatinine (0.7-1.3) mg/dL Est Cr Clr Drug Dosing mL/min Estimated GFR (MDRD) (>60) mL/min BUN/Creatinine Ratio (14-18) Glucose (74-106) mg/dL POC Glucose 228 H 199 H 238 H (70-105) mg/dL Calcium (8.5-10.1) mg/dL Total Bilirubin (0.2-1.0) mg/dL AST (15-37) U/L ALT (16-63) U/L Alkaline Phosphatase (46-116) U/L Total Protein (6.4-8.2) g/dl Albumin (3.4-5.0) g/dl Globulin gm/dL Albumin/Globulin Ratio (1-2) 03/15/17 03/16/17 03/16/17 Range/Units 21:20 04:48 04:48 WBC 10.08 H (4.23-9.07) K/mm3 RBC 4.30 L (4.63-6.08) M/mm3 Hgb 12.9 L (13.7-17.5) gm/L Hct 37.8 L (40.1-51.0) % MCV 87.9 (79.0-92.2) fl MCH 30.0 (25.7-32.2) pg MCHC 34.1 (32.2-35.5) g/dl RDW Std Deviation 39.6 (35.1-43.9) fL Plt Count 168 (163-337) K/mm3 MPV 8.9 L (9.4-12.3) fl Neut % (Auto) 78.9 H (34.0-67.9) % Lymph % (Auto) 8.3 L (21.8-53.1) % [place] % (Auto) 12.5 H (5.3-12.2) % Eos % (Auto) 0.1 L (0.8-7.0) Baso % (Auto) 0.0 L (0.1-1.2) % Neut # (Auto) 7.95 H (1.78-5.38) K/mm3 Lymph # (Auto) 0.84 L (1.32-3.57) K/mm3 [place] # (Auto) 1.26 H (0.30-0.82) K/mm3 Eos # (Auto) 0.01 L (0.04-0.54) K/mm3 Baso # (Auto) 0.00 L (0.01-0.08) K/mm3 Manual Slide Review Abnormal smear Sodium 134 L (136-145) mEq/L Potassium 4.1 (3.5-5.1) mEq/L Chloride 100 (98-107) mEq/L Carbon Dioxide 27 (21-32) mEq/L Anion Gap 11.1 (5-15) BUN 12 (7-18) mg/dL Creatinine 0.9 (0.7-1.3) mg/dL Est Cr Clr Drug Dosing 81.60 mL/min Estimated GFR (MDRD) > 60 (>60) mL/min BUN/Creatinine Ratio 13.3 L (14-18) Glucose 211 H (74-106) mg/dL POC Glucose 176 H (70-105) mg/dL Calcium 8.6 (8.5-10.1) mg/dL Total Bilirubin 0.7 (0.2-1.0) mg/dL AST 14 L (15-37) U/L ALT 23 (16-63) U/L Alkaline Phosphatase 74 (46-116) U/L Total Protein 6.3 L (6.4-8.2) g/dl Albumin 3.5 (3.4-5.0) g/dl Globulin 2.8 gm/dL Albumin/Globulin Ratio 1.3 (1-2) 03/16/17 Range/Units 06:46 WBC (4.23-9.07) K/mm3 RBC (4.63-6.08) M/mm3 Hgb (13.7-17.5) gm/L Hct (40.1-51.0) % MCV (79.0-92.2) fl MCH (25.7-32.2) pg MCHC (32.2-35.5) g/dl RDW Std Deviation (35.1-43.9) fL Plt Count (163-337) K/mm3 MPV (9.4-12.3) fl Neut % (Auto) (34.0-67.9) % Lymph % (Auto) (21.8-53.1) % [place] % (Auto) (5.3-12.2) % Eos % (Auto) (0.8-7.0) Baso % (Auto) (0.1-1.2) % Neut # (Auto) (1.78-5.38) K/mm3 Lymph # (Auto) (1.32-3.57) K/mm3 [place] # (Auto) (0.30-0.82) K/mm3 Eos # (Auto) (0.04-0.54) K/mm3 Baso # (Auto) (0.01-0.08) K/mm3 Manual Slide Review Sodium (136-145) mEq/L Potassium (3.5-5.1) mEq/L Chloride (98-107) mEq/L Carbon Dioxide (21-32) mEq/L Anion Gap (5-15) BUN (7-18) mg/dL Creatinine (0.7-1.3) mg/dL Est Cr Clr Drug Dosing mL/min Estimated GFR (MDRD) (>60) mL/min BUN/Creatinine Ratio (14-18) Glucose (74-106) mg/dL POC Glucose 201 H (70-105) mg/dL Calcium (8.5-10.1) mg/dL Total Bilirubin (0.2-1.0) mg/dL AST (15-37) U/L ALT (16-63) U/L Alkaline Phosphatase (46-116) U/L Total Protein (6.4-8.2) g/dl Albumin (3.4-5.0) g/dl Globulin gm/dL Albumin/Globulin Ratio (1-2) Med Orders - Current: Current Medications Aspirin (Ecotrin) 325 mg PO DAILY [facility] Last Admin: 03/16/17 08:14 Dose: 325 mg Bisacodyl (Dulcolax) 5 mg PO DAILY PRN PRN Reason: Constipation Cyclobenzaprine HCl (Flexeril) 10 mg PO TID PRN PRN Reason: Spasms Last Admin: 03/16/17 06:27 Dose: 10 mg Docusate Sodium (Colace) 100 mg PO BID [facility] Last Admin: 03/16/17 08:14 Dose: 100 mg Famotidine (Pepcid) 20 mg PO Q12H [facility] Last Admin: 03/16/17 08:13 Dose: 20 mg Flunisolide (Nasalide Nasal [place]) 0 ml NASBOTH BEDTIME [facility] Last Admin: 03/15/17 20:56 Dose: 2 spray Insulin Aspart (Novolog) 0 unit SUBCUT QIDACANDBED [facility] PRN Reason: Protocol Last Admin: 03/16/17 08:15 Dose: 4 units Insulin Detemir (Levemir) 11 unit SUBCUT ACBREAKFASTANDBED [facility] Last Admin: 03/16/17 08:15 Dose: 11 units Lisinopril (Prinivil) 5 mg PO DAILY [facility] Last Admin: 03/16/17 08:14 Dose: 5 mg Lorazepam (Ativan) 1 mg PO BID [facility] Last Admin: 03/16/17 08:14 Dose: 1 mg Magnesium Hydroxide (Milk Of Magnesia) 30 ml PO BID PRN PRN Reason: Constipation Morphine Sulfate (Morphine) 2 mg IVPUSH Q2H PRN PRN Reason: Breakthrough Pain Last Admin: 03/16/17 09:42 Dose: 2 mg Ondansetron HCl (Zofran) 4 mg IVPUSH Q6H PRN PRN Reason: Nausea/Vomiting Last Admin: 03/15/17 21:47 Dose: 4 mg Oxycodone/Acetaminophen (Percocet 325-5 Mg) 1 - 2 tab PO Q4H PRN PRN Reason: Pain Last Admin: 03/16/17 10:27 Dose: 2 tab Senna (Senna) 8.6 mg PO BID PRN PRN Reason: Constipation Sertraline HCl (Zoloft) 50 mg PO DAILY [facility] Last Admin: 03/16/17 08:14 Dose: 50 mg Simvastatin (Zocor) 20 mg PO DAILY [facility] Last Admin: 03/16/17 08:14 Dose: 20 mg Discontinued Medications Bupivacaine HCl (Marcaine 0.25%) Confirm Administered Dose 30 ml .ROUTE .STK- MED ONE Stop: 03/15/17 07:38 Last Admin: 03/15/17 10:36 Dose: 30 ml Cefazolin Sodium (Ancef) Confirm Administered Dose 2 gm .ROUTE .STK-MED ONE Stop: 03/15/17 07:17 Last Admin: 03/15/17 10:31 Dose: 2 gm Cefazolin Sodium (Ancef) Confirm Administered Dose 2 gm .ROUTE .STK-MED ONE Stop: 03/15/17 07:38 Morphine Sulfate 8 mg/Epinephrine HCl 0.3 mg/Cefuroxime Sodium 750 mg/Ketorolac Tromethamine 30 mg/Sodium Chloride 27.9 ml 0 mg .XX ONETIME ONE Stop: 03/15/17 09:01 Last Admin: 03/15/17 19:00 Dose: Not Given Ephedrine Sulfate (Ephedrine In Ns) Confirm Administered Dose 25 mg .ROUTE .STK- MED ONE Stop: 03/15/17 09:14 Epinephrine HCl (Adrenalin 1:1000) Confirm Administered Dose 1 mg .ROUTE .STK- MED ONE Stop: 03/15/17 07:07 Fentanyl (Sublimaze) Confirm Administered Dose 250 mcg .ROUTE .STK-MED ONE Stop: 03/15/17 07:12 Fentanyl (Sublimaze) 50 mcg IVPUSH Q5M PRN PRN Reason: PAIN Stop: 03/15/17 18:00 Lactated Ringer's (Ringers, Lactated) 1,000 mls @ 125 mls/hr IV ASDIRECTED [facility] Last Admin: 03/15/17 08:05 Dose: 125 mls/hr Cefazolin Sodium/Dextrose 2 gm (/ Premix) 50 mls @ 100 mls/hr IV Q8H [facility] Stop: 03/16/17 07:59 Last Admin: 03/16/17 06:30 Dose: 100 mls/hr Lidocaine HCl (Xylocaine-Mpf 1%) Confirm Administered Dose 6 mls @ as directed .ROUTE .STK-MED ONE Stop: 03/15/17 07:13 Lactated Ringer's (Ringers, Lactated) Confirm Administered Dose 1,000 mls @ as directed .ROUTE .STK-MED ONE Stop: 03/15/17 09:52 Insulin Aspart (Novolog) 10 unit SUBCUT TID [facility] Last Admin: 03/15/17 16:04 Dose: Not Given Insulin Aspart (Novolog) 10 unit SUBCUT TIDMEALS [facility] Last Admin: 03/15/17 17:52 Dose: 8 units Iodine (Iodine 2% Mild Tincture) Confirm Administered Dose 30 ml .ROUTE .STK- MED ONE Stop: 03/15/17 07:38 Last Admin: 03/15/17 10:29 Dose: 18 ml Lidocaine/Sodium Bicarbonate (Buffered Lidocaine 1% In Ns 8.4%) 0.25 ml IV ONETIME PRN PRN Reason: Prior to IV Start Stop: 03/15/17 16:00 Last Admin: 03/15/17 08:04 Dose: 0.25 ml Midazolam HCl (Versed 1 Mg/Ml) Confirm Administered Dose 2 mg .ROUTE .STK-MED ONE Stop: 03/15/17 07:12 Naloxone HCl (Narcan) 0.1 mg IVPUSH Q5M PRN PRN Reason: Oversedation Stop: 03/15/17 12:16 Non-Formulary Medication (Sildenafil) 50 mg PO ASDIRECTED [facility] Propofol (Diprivan 20 Ml) Confirm Administered Dose 200 mg .ROUTE .STK-MED ONE Stop: 03/15/17 07:12 Rocuronium [place] (Zemuron) Confirm Administered Dose 50 mg .ROUTE .STK-MED ONE Stop: 03/15/17 07:12 Ropivacaine (Naropin 0.5%) Confirm Administered Dose 30 ml .ROUTE .STK-MED ONE Stop: 03/15/17 07:08 Sodium Chloride (Saline Flush) 10 ml FLUSH ASDIRECTED PRN PRN Reason: Keep Vein Open Stop: 03/15/17 18:00 Tranexamic Acid (Cyklokapron) Confirm Administered Dose 1,000 mg .ROUTE .STK- MED ONE Stop: 03/15/17 07:38 Last Admin: 03/15/17 09:55 Dose: 1,000 mg - Exam Wound/Incisions: dressing dry and intact General: alert, cooperative, no acute distress Lungs: Normal respiratory effort Extremities: normal pulses, no calf tenderness (NVS intact for LUE.) - Problem List Review Problem List Initiated/Reviewed/Updated: Yes - My Orders Last 24 Hours: Active Orders 24 hr Category Date Time Status Blood Glucose Check, Bedside [RC] ONETIME Care 03/15/17 11:23 Inactive Notify Provider [RC] DAILY Care 03/15/17 11:24 Active Pulse Oximetry [RC] ASDIRECTED Care 03/15/17 11:23 Active Ready for Discharge [RC] PER UNIT ROUTINE Care 03/16/17 10:28 Ordered Regular Diet [DIET] Diet 03/15/17 Lunch Active Aspirin [Ecotrin] Med 03/16/17 09:00 Active 325 mg PO DAILY Docusate Sodium [Colace] Med 03/15/17 21:00 Active 100 mg PO BID Famotidine [Pepcid] Med 03/15/17 21:00 Active 20 mg PO Q12H Flunisolide [Nasalide Nasal [place]] Med 03/15/17 21:00 Active 0 ml NASBOTH BEDTIME Insulin Aspart [NovoLOG] Med 03/15/17 21:00 Active See Protocol SUBCUT QIDACANDBED Insulin Detemir [Levemir] Med 03/15/17 21:00 Active 11 unit SUBCUT ACBREAKFASTANDBED LORazepam [Ativan] Med 03/15/17 21:00 Active 1 mg PO BID Lisinopril [Prinivil] Med 03/16/17 09:00 Active 5 mg PO DAILY Sennosides [Senna] Med 03/15/17 21:00 Active 8.6 mg PO BID PRN Sertraline [Zoloft] Med 03/16/17 09:00 Active 50 mg PO DAILY Simvastatin [Zocor] Med 03/16/17 09:00 Active 20 mg PO DAILY Medication Orders Aspirin (Ecotrin) 325 mg PO DAILY [facility] Last Admin: 03/16/17 08:14 Dose: 325 mg Bisacodyl (Dulcolax) 5 mg PO DAILY PRN PRN Reason: Constipation Cyclobenzaprine HCl (Flexeril) 10 mg PO TID PRN PRN Reason: Spasms Last Admin: 03/16/17 06:27 Dose: 10 mg Admin: 03/15/17 21:47 Dose: 10 mg Docusate Sodium (Colace) 100 mg PO BID [facility] Last Admin: 03/16/17 08:14 Dose: 100 mg Admin: 03/15/17 20:55 Dose: 100 mg Famotidine (Pepcid) 20 mg PO Q12H [facility] Last Admin: 03/16/17 08:13 Dose: 20 mg Admin: 03/15/17 20:54 Dose: 20 mg Flunisolide (Nasalide Nasal [place]) 0 ml NASBOTH BEDTIME [facility] Last Admin: 03/15/17 20:56 Dose: 2 spray Insulin Aspart (Novolog) 0 unit SUBCUT QIDACANDBED [facility] PRN Reason: Protocol Last Admin: 03/16/17 08:15 Dose: 4 units Admin: 03/15/17 22:01 Dose: Not Given Admin: 03/15/17 21:47 Dose: 2 units Insulin Detemir (Levemir) 11 unit SUBCUT ACBREAKFASTANDBED [facility] Last Admin: 03/16/17 08:15 Dose: 11 units Admin: 03/15/17 21:48 Dose: 11 units Lisinopril (Prinivil) 5 mg PO DAILY [facility] Last Admin: 03/16/17 08:14 Dose: 5 mg Lorazepam (Ativan) 1 mg PO BID [facility] Last Admin: 03/16/17 08:14 Dose: 1 mg Admin: 03/15/17 20:55 Dose: 1 mg Magnesium Hydroxide (Milk Of Magnesia) 30 ml PO BID PRN PRN Reason: Constipation Morphine Sulfate (Morphine) 2 mg IVPUSH Q2H PRN PRN Reason: Breakthrough Pain Last Admin: 03/16/17 09:42 Dose: 2 mg Admin: 03/16/17 05:05 Dose: 2 mg Admin: 03/15/17 23:20 Dose: 2 mg Ondansetron HCl (Zofran) 4 mg IVPUSH Q6H PRN PRN Reason: Nausea/Vomiting Last Admin: 03/15/17 21:47 Dose: 4 mg Oxycodone/Acetaminophen (Percocet 325-5 Mg) 1 - 2 tab PO Q4H PRN PRN Reason: Pain Last Admin: 03/16/17 10:27 Dose: 2 tab Admin: 03/16/17 06:27 Dose: 2 tab Admin: 03/16/17 02:00 Dose: 2 tab Admin: 03/15/17 21:47 Dose: 2 tab Admin: 03/15/17 18:00 Dose: 2 tab Admin: 03/15/17 12:56 Dose: 2 tab Senna (Senna) 8.6 mg PO BID PRN PRN Reason: Constipation Sertraline HCl (Zoloft) 50 mg PO DAILY [facility] Last Admin: 03/16/17 08:14 Dose: 50 mg Simvastatin (Zocor) 20 mg PO DAILY [facility] Last Admin: 03/16/17 08:14 Dose: 20 mg - Assessment Assessment (Free Text/Narrative):: POD#1 - left reverse total shoulder arthroplasty - Plan Plan (Free Text/Narrative):: 1. 325mg ASA daily. 2. Close monitoring of blood sugars. 3. Discharge to home today. 4. Outpatient therapy; subsca precautions. The pt's case was discussed with Dr. Olivera.
--- NOTE | 2017-03-16 10:33 | PCM.DCSUM1 ---
Discharge Summary - Hospital Course Brief History: Nitish is a 61 yo male who underwent left reverse TSA with Dr. Olivera on 03-15-17. The procedure was completed under general anesthesia with regional block. The pt tolerated the procedure well and was admitted to the Medical-Surgical Unit. Medical management was provided by the Hospitalist service. The pt's blood sugars were closely monitored. The pt's Hospital course was uneventful. The pt's Hgb on POD#1 was 12.9. On POD#1, 325mg ASA daily was initiated for VTE prophylaxis. A Mepilex dressing was placed at the incision site at the time of surgery and remained clean and dry. The pt participated in P.T. and O.T. and progressed well. On POD#1, the pt was deemed appropriate to discharge to home with his and will attend out-patient therapy. - Discharge Data Discharge Date: 03/16/17 Discharge Disposition: Home, Self-Care 01 Condition: Good - Patient Summary/Data Consults: Consultations 03/15/17 06:50 Consult to Physician [CONS] Routine OT Evaluation and Treatment [CONS] Routine 03/15/17 06:54 PT Evaluation and Treatment [CONS] Routine - Patient Instructions Diet: Usual Diet as Tolerated Activity: Apply Ice, As Tolerated, Elevate Extremity Driving: Do Not Drive Showering/Bathing: May Shower Wound/Incision Care: Keep Operative Site/Wound Site Clean and Dry, Do NOT Change Dressing Notify Provider of: Fever, Increased Pain, Swelling and Redness, Drainage, Nausea and/or Vomiting Other/Special Instructions: Please get up and moving around every hour while awake. This helps to prevent blood clots. Have help with mobility as needed. Please take 325mg aspirin once daily - this also helps to prevent blood clots. The medication is being used for blood clot prevention and not for pain control , so please use the medication daily as directed. Please wear the CARLA hose during the day and you may remove them at night. Please schedule for P.T. or O.T. Complete the exercises and stretches that were instructed in the Hospital. Please use the pain medication and muscle relaxant as needed. The medication may cause drowsiness and/or constipation. You could use a stool softener like docusate sodium or Colace 100mg twice daily and/or a laxative like polyethylene glycol or Miralax daily for constipation. Contact your primary care provider for further instructions if you are constipated. Please schedule an appointment with your primary care provider for 'routine post-op care'. Use the incentive spirometer often. Please place ice to the shoulder often. Please elevate the limb to decrease swelling. Keep the Mepilex dressing in place until follow-up. CLOSELY monitor your blood sugars. Close monitoring and treatment of blood sugars will help lessen your risk of infection. Please call [phone] with questions or concerns. - Discharge Plan Prescriptions/Med Rec: Acetaminophen/oxyCODONE [Percocet 325-5 MG] 1 - 2 tab PO Q4H PRN #60 tablet PRN Reason: Pain Aspirin [Ecotrin] 325 mg PO DAILY #40 tab.ec Cyclobenzaprine [Flexeril] 10 mg PO TID PRN #40 tablet PRN Reason: Spasms Home Medications: Home Meds Cholecalciferol (Vitamin D3) [Vitamin D3] 5,000 unit PO DAILY 09/10/15 [History] LORazepam [Ativan] 1 mg PO BID 09/10/15 [History] Multivitamin [Multivitamins] 1 each PO DAILY 09/10/15 [History] [place]-3 Fatty Acids [[place]-3] 1 cap PO DAILY 09/10/15 [History] Fluticasone Propionate [Flonase] 1 spray NASBOTH BEDTIME 03/12/17 [History] Insulin Aspart [NovoLOG] 10 units SQ TID 03/12/17 [History] Insulin Glargine,Hum.Rec.Anlog [[place] Solostar] 22 units SQ BEDTIME 03/12/17 [ History] Lisinopril 5 mg PO DAILY 03/12/17 [History] Pravastatin [Pravachol] 40 mg PO DAILY 03/12/17 [History] Sertraline [Zoloft] 50 mg PO DAILY 03/12/17 [History] Acetaminophen/oxyCODONE [Percocet 325-5 MG] 1 - 2 tab PO Q4H PRN #60 tablet 07/25 [Rx] Aspirin [Ecotrin] 325 mg PO DAILY #40 tab.ec 03/16/17 [Rx] Bisacodyl [Dulcolax] 5 mg PO DAILY PRN #0 tablet 03/16/17 [Rx] Cyclobenzaprine [Flexeril] 10 mg PO TID PRN #40 tablet 03/16/17 [Rx] Docusate Sodium [Colace] 100 mg PO BID cap 03/16/17 [Rx] Famotidine [Pepcid] 20 mg PO Q12H tablet 03/16/17 [Rx] Magnesium Hydroxide [Milk of Magnesia] 30 ml PO BID PRN #0 cup 03/16/17 [Rx] Sennosides [Senna] 8.6 mg PO BID PRN #0 tablet 03/16/17 [Rx] Patient Handouts: Shoulder Joint Replacement, Care After Referrals: Lisa Perez PA-C [Physician Sawing And Assembly Supervisor] - Fox Abdi MD [Primary Care Provider] - - Patient Data Vitals - Most Recent: Last Vital Signs Temp 98.8 F 03/16/17 08:12 Pulse 113 H 03/16/17 08:12 Resp 14 03/16/17 08:12 BP 129/69 03/16/17 08:14 Pulse Ox 93 L 03/16/17 08:12 Weight - Most Recent: 160 lb 6.4 oz I&O - Last 24 hours: Intake & Output 03/15/17 03/16/17 03/16/17 22:59 06:59 14:59 Intake Total 180 1400 Output Total 600 1100 Balance -420 300 Lab Results - Last 24 hrs: Laboratory Results - last 24 hr 03/15/17 03/15/17 03/15/17 Range/Units 11:46 15:16 17:32 WBC (4.23-9.07) K/mm3 RBC (4.63-6.08) M/mm3 Hgb (13.7-17.5) gm/L Hct (40.1-51.0) % MCV (79.0-92.2) fl MCH (25.7-32.2) pg MCHC (32.2-35.5) g/dl RDW Std Deviation (35.1-43.9) fL Plt Count (163-337) K/mm3 MPV (9.4-12.3) fl Neut % (Auto) (34.0-67.9) % Lymph % (Auto) (21.8-53.1) % [place] % (Auto) (5.3-12.2) % Eos % (Auto) (0.8-7.0) Baso % (Auto) (0.1-1.2) % Neut # (Auto) (1.78-5.38) K/mm3 Lymph # (Auto) (1.32-3.57) K/mm3 [place] # (Auto) (0.30-0.82) K/mm3 Eos # (Auto) (0.04-0.54) K/mm3 Baso # (Auto) (0.01-0.08) K/mm3 Manual Slide Review Sodium (136-145) mEq/L Potassium (3.5-5.1) mEq/L Chloride (98-107) mEq/L Carbon Dioxide (21-32) mEq/L Anion Gap (5-15) BUN (7-18) mg/dL Creatinine (0.7-1.3) mg/dL Est Cr Clr Drug Dosing mL/min Estimated GFR (MDRD) (>60) mL/min BUN/Creatinine Ratio (14-18) Glucose (74-106) mg/dL POC Glucose 228 H 199 H 238 H (70-105) mg/dL Calcium (8.5-10.1) mg/dL Total Bilirubin (0.2-1.0) mg/dL AST (15-37) U/L ALT (16-63) U/L Alkaline Phosphatase (46-116) U/L Total Protein (6.4-8.2) g/dl Albumin (3.4-5.0) g/dl Globulin gm/dL Albumin/Globulin Ratio (1-2) 03/15/17 03/16/17 03/16/17 Range/Units 21:20 04:48 04:48 WBC 10.08 H (4.23-9.07) K/mm3 RBC 4.30 L (4.63-6.08) M/mm3 Hgb 12.9 L (13.7-17.5) gm/L Hct 37.8 L (40.1-51.0) % MCV 87.9 (79.0-92.2) fl MCH 30.0 (25.7-32.2) pg MCHC 34.1 (32.2-35.5) g/dl RDW Std Deviation 39.6 (35.1-43.9) fL Plt Count 168 (163-337) K/mm3 MPV 8.9 L (9.4-12.3) fl Neut % (Auto) 78.9 H (34.0-67.9) % Lymph % (Auto) 8.3 L (21.8-53.1) % [place] % (Auto) 12.5 H (5.3-12.2) % Eos % (Auto) 0.1 L (0.8-7.0) Baso % (Auto) 0.0 L (0.1-1.2) % Neut # (Auto) 7.95 H (1.78-5.38) K/mm3 Lymph # (Auto) 0.84 L (1.32-3.57) K/mm3 [place] # (Auto) 1.26 H (0.30-0.82) K/mm3 Eos # (Auto) 0.01 L (0.04-0.54) K/mm3 Baso # (Auto) 0.00 L (0.01-0.08) K/mm3 Manual Slide Review Abnormal smear Sodium 134 L (136-145) mEq/L Potassium 4.1 (3.5-5.1) mEq/L Chloride 100 (98-107) mEq/L Carbon Dioxide 27 (21-32) mEq/L Anion Gap 11.1 (5-15) BUN 12 (7-18) mg/dL Creatinine 0.9 (0.7-1.3) mg/dL Est Cr Clr Drug Dosing 81.60 mL/min Estimated GFR (MDRD) > 60 (>60) mL/min BUN/Creatinine Ratio 13.3 L (14-18) Glucose 211 H (74-106) mg/dL POC Glucose 176 H (70-105) mg/dL Calcium 8.6 (8.5-10.1) mg/dL Total Bilirubin 0.7 (0.2-1.0) mg/dL AST 14 L (15-37) U/L ALT 23 (16-63) U/L Alkaline Phosphatase 74 (46-116) U/L Total Protein 6.3 L (6.4-8.2) g/dl Albumin 3.5 (3.4-5.0) g/dl Globulin 2.8 gm/dL Albumin/Globulin Ratio 1.3 (1-2) 03/16/17 Range/Units 06:46 WBC (4.23-9.07) K/mm3 RBC (4.63-6.08) M/mm3 Hgb (13.7-17.5) gm/L Hct (40.1-51.0) % MCV (79.0-92.2) fl MCH (25.7-32.2) pg MCHC (32.2-35.5) g/dl RDW Std Deviation (35.1-43.9) fL Plt Count (163-337) K/mm3 MPV (9.4-12.3) fl Neut % (Auto) (34.0-67.9) % Lymph % (Auto) (21.8-53.1) % [place] % (Auto) (5.3-12.2) % Eos % (Auto) (0.8-7.0) Baso % (Auto) (0.1-1.2) % Neut # (Auto) (1.78-5.38) K/mm3 Lymph # (Auto) (1.32-3.57) K/mm3 [place] # (Auto) (0.30-0.82) K/mm3 Eos # (Auto) (0.04-0.54) K/mm3 Baso # (Auto) (0.01-0.08) K/mm3 Manual Slide Review Sodium (136-145) mEq/L Potassium (3.5-5.1) mEq/L Chloride (98-107) mEq/L Carbon Dioxide (21-32) mEq/L Anion Gap (5-15) BUN (7-18) mg/dL Creatinine (0.7-1.3) mg/dL Est Cr Clr Drug Dosing mL/min Estimated GFR (MDRD) (>60) mL/min BUN/Creatinine Ratio (14-18) Glucose (74-106) mg/dL POC Glucose 201 H (70-105) mg/dL Calcium (8.5-10.1) mg/dL Total Bilirubin (0.2-1.0) mg/dL AST (15-37) U/L ALT (16-63) U/L Alkaline Phosphatase (46-116) U/L Total Protein (6.4-8.2) g/dl Albumin (3.4-5.0) g/dl Globulin gm/dL Albumin/Globulin Ratio (1-2) Med Orders - Current: Current Medications Aspirin (Ecotrin) 325 mg PO DAILY [facility] Last Admin: 03/16/17 08:14 Dose: 325 mg Bisacodyl (Dulcolax) 5 mg PO DAILY PRN PRN Reason: Constipation Cyclobenzaprine HCl (Flexeril) 10 mg PO TID PRN PRN Reason: Spasms Last Admin: 03/16/17 06:27 Dose: 10 mg Docusate Sodium (Colace) 100 mg PO BID [facility] Last Admin: 03/16/17 08:14 Dose: 100 mg Famotidine (Pepcid) 20 mg PO Q12H [facility] Last Admin: 03/16/17 08:13 Dose: 20 mg Flunisolide (Nasalide Nasal [place]) 0 ml NASBOTH BEDTIME [facility] Last Admin: 03/15/17 20:56 Dose: 2 spray Insulin Aspart (Novolog) 0 unit SUBCUT QIDACANDBED [facility] PRN Reason: Protocol Last Admin: 03/16/17 08:15 Dose: 4 units Insulin Detemir (Levemir) 11 unit SUBCUT ACBREAKFASTANDBED [facility] Last Admin: 03/16/17 08:15 Dose: 11 units Lisinopril (Prinivil) 5 mg PO DAILY [facility] Last Admin: 03/16/17 08:14 Dose: 5 mg Lorazepam (Ativan) 1 mg PO BID [facility] Last Admin: 03/16/17 08:14 Dose: 1 mg Magnesium Hydroxide (Milk Of Magnesia) 30 ml PO BID PRN PRN Reason: Constipation Morphine Sulfate (Morphine) 2 mg IVPUSH Q2H PRN PRN Reason: Breakthrough Pain Last Admin: 03/16/17 09:42 Dose: 2 mg Ondansetron HCl (Zofran) 4 mg IVPUSH Q6H PRN PRN Reason: Nausea/Vomiting Last Admin: 03/15/17 21:47 Dose: 4 mg Oxycodone/Acetaminophen (Percocet 325-5 Mg) 1 - 2 tab PO Q4H PRN PRN Reason: Pain Last Admin: 03/16/17 10:27 Dose: 2 tab Senna (Senna) 8.6 mg PO BID PRN PRN Reason: Constipation Sertraline HCl (Zoloft) 50 mg PO DAILY [facility] Last Admin: 03/16/17 08:14 Dose: 50 mg Simvastatin (Zocor) 20 mg PO DAILY [facility] Last Admin: 03/16/17 08:14 Dose: 20 mg Discontinued Medications Bupivacaine HCl (Marcaine 0.25%) Confirm Administered Dose 30 ml .ROUTE .STK- MED ONE Stop: 03/15/17 07:38 Last Admin: 03/15/17 10:36 Dose: 30 ml Cefazolin Sodium (Ancef) Confirm Administered Dose 2 gm .ROUTE .STK-MED ONE Stop: 03/15/17 07:17 Last Admin: 03/15/17 10:31 Dose: 2 gm Cefazolin Sodium (Ancef) Confirm Administered Dose 2 gm .ROUTE .STK-MED ONE Stop: 03/15/17 07:38 Morphine Sulfate 8 mg/Epinephrine HCl 0.3 mg/Cefuroxime Sodium 750 mg/Ketorolac Tromethamine 30 mg/Sodium Chloride 27.9 ml 0 mg .XX ONETIME ONE Stop: 03/15/17 09:01 Last Admin: 03/15/17 19:00 Dose: Not Given Ephedrine Sulfate (Ephedrine In Ns) Confirm Administered Dose 25 mg .ROUTE .STK- MED ONE Stop: 03/15/17 09:14 Epinephrine HCl (Adrenalin 1:1000) Confirm Administered Dose 1 mg .ROUTE .STK- MED ONE Stop: 03/15/17 07:07 Fentanyl (Sublimaze) Confirm Administered Dose 250 mcg .ROUTE .STK-MED ONE Stop: 03/15/17 07:12 Fentanyl (Sublimaze) 50 mcg IVPUSH Q5M PRN PRN Reason: PAIN Stop: 03/15/17 18:00 Lactated Ringer's (Ringers, Lactated) 1,000 mls @ 125 mls/hr IV ASDIRECTED [facility] Last Admin: 03/15/17 08:05 Dose: 125 mls/hr Cefazolin Sodium/Dextrose 2 gm (/ Premix) 50 mls @ 100 mls/hr IV Q8H [facility] Stop: 03/16/17 07:59 Last Admin: 03/16/17 06:30 Dose: 100 mls/hr Lidocaine HCl (Xylocaine-Mpf 1%) Confirm Administered Dose 6 mls @ as directed .ROUTE .STK-MED ONE Stop: 03/15/17 07:13 Lactated Ringer's (Ringers, Lactated) Confirm Administered Dose 1,000 mls @ as directed .ROUTE .STK-MED ONE Stop: 03/15/17 09:52 Insulin Aspart (Novolog) 10 unit SUBCUT TID [facility] Last Admin: 03/15/17 16:04 Dose: Not Given Insulin Aspart (Novolog) 10 unit SUBCUT TIDMEALS [facility] Last Admin: 03/15/17 17:52 Dose: 8 units Iodine (Iodine 2% Mild Tincture) Confirm Administered Dose 30 ml .ROUTE .STK- MED ONE Stop: 03/15/17 07:38 Last Admin: 03/15/17 10:29 Dose: 18 ml Lidocaine/Sodium Bicarbonate (Buffered Lidocaine 1% In Ns 8.4%) 0.25 ml IV ONETIME PRN PRN Reason: Prior to IV Start Stop: 03/15/17 16:00 Last Admin: 03/15/17 08:04 Dose: 0.25 ml Midazolam HCl (Versed 1 Mg/Ml) Confirm Administered Dose 2 mg .ROUTE .STK-MED ONE Stop: 03/15/17 07:12 Naloxone HCl (Narcan) 0.1 mg IVPUSH Q5M PRN PRN Reason: Oversedation Stop: 03/15/17 12:16 Non-Formulary Medication (Sildenafil) 50 mg PO ASDIRECTED [facility] Propofol (Diprivan 20 Ml) Confirm Administered Dose 200 mg .ROUTE .STK-MED ONE Stop: 03/15/17 07:12 Rocuronium [place] (Zemuron) Confirm Administered Dose 50 mg .ROUTE .STK-MED ONE Stop: 03/15/17 07:12 Ropivacaine (Naropin 0.5%) Confirm Administered Dose 30 ml .ROUTE .STK-MED ONE Stop: 03/15/17 07:08 Sodium Chloride (Saline Flush) 10 ml FLUSH ASDIRECTED PRN PRN Reason: Keep Vein Open Stop: 03/15/17 18:00 Tranexamic Acid (Cyklokapron) Confirm Administered Dose 1,000 mg .ROUTE .STK- MED ONE Stop: 03/15/17 07:38 Last Admin: 03/15/17 09:55 Dose: 1,000 mg *Q Meaningful Use (DIS) - VTE *Q VTE Criteria *Q: - Stroke *Q Stroke Criteria *Q: - AMI *Q AMI Criteria *Q:
--- NOTE | 2017-03-17 21:16 | PCM.OPNOTE ---
- General Post-Op/Procedure Note Date of Surgery/Procedure: 03/15/17 Operative Procedure(s): left reverse total shoulder arthroplasty Pre Op Diagnosis: left shoulder rotator cuff tear arthropathy Post-Op Diagnosis: Same Anesthesia Technique: General ET tube, Regional block Primary Surgeon: Esteban Olivera Anesthesia Provider: Rakesh Sanders Burlesque Dancer: Lisa Perez Burlesque Dancer: Lary Brennan EBL in mLs: 250 Complications: None Condition: Good
--- NOTE | 2017-03-17 22:31 | OR ---
DATE OF OPERATION: 03/15/2017 SURGEON: Esteban Olivera MD OPERATIVE PROCEDURE: Left reverse total shoulder arthroplasty. PREOPERATIVE DIAGNOSIS: Left shoulder rotator cuff tear arthropathy. POSTOPERATIVE DIAGNOSIS: Left shoulder rotator cuff tear arthropathy. ANESTHESIA: Endotracheal intubation with regional block. ANESTHESIA PROVIDER: Rakesh Sanders CRNA. SCRUB TECH: 1. Lisa Perez PA-C. 2. Lary Brennan LPN. ESTIMATED BLOOD LOSS: 250 mL. COMPLICATIONS: None. CONDITION: Stable. IMPLANTS: 1. Arthrex size 9 humeral stem. 2. Arthrex 34 mm glenoid cup component with +3 polyethylene liner. 3. A 36 mm +4 glenoid sphere. 4. Arthrex small glenoid sphere base plate with two 30 mm locking screws and a 15 mm compression screw. DESCRIPTION OF PROCEDURE: The patient was identified in the preop holding area. Proper site was marked and identified by the surgeon. The patient was taken back to the operating theater where after adequate anesthesia, the patient was placed supine on a radiolucent table. He then had the left shoulder sterilely prepped and draped in the usual sterile fashion. OR time-out was performed. The patient received 2 g IV Ancef. The table was then placed in reverse Trendelenburg position. Standard incision was made centered over the coracoid process and this was taken down to find the deltopectoral interval and cephalic vein. Cephalic vein was identified. It was retracted laterally with no tension at this time. The conjoined tendon was identified and the clavipectoral fascia was incised. The anterior humeral circumflex vessels were identified, ligated. The subscapularis tendon was then identified as well as the biceps tendon. The biceps tendon had a subpectoralis tenodesis using #2 FiberWire. The biceps tendon was then tenotomized and Arias scissors was used for release of the bicipital groove interval all the way up short of the CA ligament. At this time, the peel back of the subscapularis tendon was done and the humeral head was dislocated from the glenohumeral joint. At this time, the guide pin was placed in the upper outer edge of the humeral head. Starter reamer was then placed and then a neck cut guide was then placed. It was placed at 30 degrees of retroversion. The neck cut was then completed. It was found to be medium base plate that fit the over the top of the humerus. At this time, attention was returned to the glenoid. Posterior and anterior retractors placed on the glenoid. Removal of labrum was then undertaken as well as release the capsule both anterior inferior portion. It was found to be a size small base plate, superior base plate size. At this time, the guide pin was then placed in a center-center position and the central reamer was then placed. The peripheral reamer was then placed for a small base plate and the peripheral reamer was down to good cancellous bone. The small base plate was then impacted and the glenoid sphere base plate was then impacted into place. The central 15 mm screw was then drilled and was placed and two 30 mm locking screws were placed both superior and inferior with adequate fixation. At this time, attention was turned back to the humerus. Starting with a 0 broach, I broached up to a size 9 broach which was found to be rotational and vertically stable in 30 degrees of retroversion. At this time, the glenoid sphere 36+ 4 was then impacted into place. The trial stem was placed along with the 34 with a +3 polyethylene trial. It was found to have adequate motion throughout with no instability noted and adequate deltoid tension but not over tensioned. At this time, the humerus was dislocated again and the size 9 Arthrex stem was impacted into place at 135 degrees with a +3 liner. The shoulder was then relocated. A 1 L diluted Betadine solution was irrigated through the shoulder along with 3 L pulse lavage irrigation with Ancef. At this time a subscapularis closure was done using #2 FiberWire through drill holes through the lesser tuberosity. This had adequate fixation. A #2 FiberWire was used for closure of the deltopectoral interval. 2-0 Vicryl was used subcutaneously and Prineo was used for the skin. The patient was placed in a pillow sling and soft dressing. The patient tolerated the procedure well sent to PACU in stable condition. OPERATION PERFORMED: MMODAL /[id number]
== END 2017-03-16 12:26 | disposition home or self-care (01) | DRG 315 ==
LOC: JD.MS 07:30
PROVIDERS: ADMIT Orthopaedic Surgery; ATTEND Orthopaedic Surgery
PROC: 0RRK00Z Replacement of Left Shoulder Joint with Reverse Ball and Socket Synthetic Substitute, Open Approach (ICD-10-PCS; principal; 2017-03-15)
DX: M75.102 Unspecified rotator cuff tear or rupture of left shoulder, not specified as traumatic (principal); E11.21 Type 2 diabetes mellitus with diabetic nephropathy; Z79.4 Long term (current) use of insulin; I10 Essential (primary) hypertension; E78.5 Hyperlipidemia, unspecified; M19.90 Unspecified osteoarthritis, unspecified site; Z79.82 Long term (current) use of aspirin; Z79.899 Other long term (current) drug therapy
CPT/HCPCS: 01630; 36415; 64415; 73020-26-LT; 73020-LT; 76000; 76000-26; 80053; 82962; 85025; 87641; 97110-GP; 97161-GP; 97165-GO; 97530-GP; 97535-GO; A9270-GY; C1713; C1776; J0171; J0690; J1815-GY; J2250; J2270; J2405; J2704; J2795; J3010; J3490; J7050; J7120

== ENCOUNTER 2021-08-14 06:11 | Day surgery (SDC) | payer BC ==
[~2021-08-14 06:11] MED LIST changes: +Acetaminophen 325 MG Tab PO SCH; -Bisacodyl 5 MG Tab PO PRN; -EPINEPHrine 1:1000 1 MG/ML SDV ONE; -Lactated Ringers 1,000 ML IV SCH; -Lidocaine 1% 6 ML ONE; -Lidocaine 1%/Sod Bicarbonate in NS 8.4% 1 ML Syringe IV PRN; -Magnesium Hydroxide 400 MG/5 ML Susp 30 ML Cup PO PRN; -Midazolam 1 MG/ML 2 ML SDV ONE; -Ondansetron 4 MG/2 ML SDV IVPUSH PRN; +Pregabalin 25 MG Cap PO SCH; -Propofol 200 MG/20 ML SDV ONE; -Rocuronium 50 MG/5 ML Vial ONE; -Ropivacaine 0.5% 5 MG/ML 30 ML SDV ONE; -Sodium Chloride 0.9% 10 ML Syringe FLUSH PRN; -fentaNYL 250 MCG/5 ML SDV ONE; +oxyCODONE ER 10 MG TAB.ER PO SCH
[2021-08-14] MEDS ORDERED: Ropivacaine 0.5% 5 MG/ML 30 ML SDV ONE (06:13)
[2021-08-14] MEDS ORDERED: EPINEPHrine 1 MG/ML SDV ONE (06:13)
[2021-08-14] MEDS ORDERED: Midazolam 1 MG/ML 2 ML SDV ONE (06:14)
[2021-08-14] MEDS ORDERED: fentaNYL 100 MCG/2 ML SDV ONE (06:14)
[2021-08-14] MEDS ORDERED: Propofol 200 MG/20 ML SDV ONE (06:15)
[2021-08-14] MEDS ORDERED: ceFAZolin 1 GM Vial ONE (06:15)
--- NOTE | 2021-08-14 06:30 | PCM.PREANE ---
Preanesthetic Assessment - Procedure Proposed Procedure: right total knee arthroplasty - Anesthesia/Transfusion/Family Hx Anesthesia History: Prior Anesthesia Without Reaction Family History of Anesthesia Reaction: No Transfusion History: No Prior Transfusion(s) - Review of Systems General: No Symptoms Pulmonary: No Symptoms Cardiovascular: No Symptoms Gastrointestinal: No Symptoms Neurological: No Symptoms Other: Reports: Diabetes, Anxiety - Physical Assessment NPO Status Date: 08/13/21 NPO Status Time: 22:30 Vital Signs: 97.7 16 97% 69 148/74 Height: 5 ft 4 in Weight: 65.8 kg ASA Class: 2 Mental Status: Alert & Oriented x3 Airway Class: Mallampati = 1 Dentition: Reports: Normal Dentition Thyro-Mental Finger Breadths: 3 Mouth Opening Finger Breadths: 3 ROM/Head Extension: Full Lungs: Clear to Auscultation, Normal Respiratory Effort Cardiovascular: Regular Rate, Regular Rhythm - Allergies Allergies/Adverse Reactions: Allergies Allergy/AdvReac Type Severity Reaction Status Date / Time animal dander Allergy Sneezing Verified 08/13/21 15:26 - Blood Blood Available: No - Acknowledgements Anesthesia Type Planned: Spinal Pt an Appropriate Candidate for the Planned Anesthesia: Yes Alternatives and Risks of Anesthesia Discussed w Pt/Guardian: Yes Pt/Guardian Understands and Agrees with Anesthesia Plan: Yes PreAnesthesia Questionnaire HEENT History: Reports: Hard of Hearing, Impaired Vision, Sinusitis Other HEENT History: hearing aids, glasses Respiratory History: Reports: Asthma Gastrointestinal History: Reports: Other (See Below) Other Gastrointestinal History: abdominal pulsatile mass Genitourinary History: Reports: Other (See Below) Other Genitourinary History: testicular hypergonadotropic hypogoandism, erectile dysfunction DEVELOPMENT OFFICER History: Reports: None Musculoskeletal History: Reports: Back Pain, Chronic, Other (See Below) Other Musculoskeletal History: total knee replacement, rotator cuff repair, C spine surgery, bilateral carpal tunnel surgery Neurological History: Reports: Neuropathy, Diabetic Psychiatric History: Reports: Anxiety Endocrine/Metabolic History: Reports: Diabetes, Type II Hematologic History: Reports: None Immunologic History: Reports: None Oncologic (Cancer) History: Reports: None Other Dermatologic History: L hand abcess from cat bite - Infectious Disease History Infectious Disease History: Reports: Chicken Pox, Influenza, Measles, MRSA - Past Surgical History Head Surgeries/Procedures: Reports: None HEENT Surgical History: Reports: None Cardiovascular Surgical History: Reports: None Respiratory Surgical History: Reports: None GI Surgical History: Reports: Colonoscopy Male Surgical History: Reports: None Endocrine Surgical History: Reports: None Neurological Surgical History: Reports: C-Spine Musculoskeletal Surgical History: Reports: Carpal Tunnel, Joint Replacement, Knee Replacement, Other (See Below) (knuckles replaced) Oncologic Surgical History: Reports: None Dermatological Surgical History: - SUBSTANCE USE Tobacco Use Status *Q: Current Every Day Tobacco User Tobacco Use Within Last Twelve Months: Snuff/Dip Second Hand Smoke Exposure: No Days Per Week of Alcohol Use: 2 Recreational Drug Use History: No - HOME MEDS Home Medications: Home Meds Cholecalciferol (Vitamin D3) [Vitamin D3] 5,000 unit PO DAILY 09/10/15 [History] Multivitamin [Multivitamins] 1 each PO DAILY 09/10/15 [History] [place]-3 Fatty Acids [[place]-3] 1 cap PO DAILY 09/10/15 [History] Fluticasone Propionate [Flonase] 1 spray NASBOTH BEDTIME 03/12/17 [History] Insulin Glargine,Hum.Rec.Anlog [[place]jeo Solostar] 24 units SQ BEDTIME 03/12/17 [History] Albuterol Sulfate [Albuterol Sulfate HFA] 2 puff INH Q4H PRN 08/13/21 [History] Albuterol [Proventil] 1 dose NEB Q4H PRN 08/13/21 [History] Apixaban [Eliquis] 2.5 mg PO BID #60 tablet 08/13/21 [Rx] Aspirin 81 mg PO DAILY 08/13/21 [History] FLUoxetine HCl [Prozac] 20 mg PO DAILY 08/13/21 [History] Gabapentin [Neurontin] 300 mg PO TID 08/13/21 [History] Insulin Aspart (Niacinamide) [Fiasp 100 Unit/ml Vial] 1 dose SQ ASDIRECTED 08/13/21 [History] LORazepam [Ativan] 1 mg PO BID PRN 08/13/21 [History] Zolpidem [Ambien] 5 mg PO BEDTIME 08/13/21 [History] oxyCODONE 5 - 10 mg PO Q4H PRN #40 tab 08/13/21 [Rx] - CURRENT (IN HOUSE) MEDS Current Meds: Current Medications Acetaminophen (Acetaminophen 325 Mg Tab) 975 mg PO ONETIME KACI Stop: 08/14/21 14:00 Morphine Sulfate 8 mg/Epinephrine HCl 0.3 mg/Cefuroxime Sodium 750 mg/Ketorolac Tromethamine 30 mg/Sodium Chloride 7.9 ml 0 mg .XX ASDIRECTED PRN PRN Reason: Pain Stop: 08/14/21 16:00 Lactated Ringer's (Ringers, Lactated) 1,000 mls @ 125 mls/hr IV ASDIRECTED KACI Stop: 08/14/21 23:00 Lidocaine/Sodium Bicarbonate (Lidocaine 1%/Sod Bicarbonate In Ns 8.4% 1 Ml Syringe) 0.25 ml IDERM ONETIME PRN PRN Reason: Prior to IV Start Stop: 08/14/21 18:00 Oxycodone HCl (Oxycodone Er 10 Mg Tab.Er) 10 mg PO ONETIME KACI Stop: 08/14/21 14:00 Pregabalin (Pregabalin 25 Mg Cap) 50 mg PO ONETIME KACI Stop: 08/14/21 14:00 Sodium Chloride (Sodium Chloride 0.9% 10 Ml Syringe) 10 ml FLUSH ASDIRECTED PRN PRN Reason: Keep Vein Open Stop: 08/14/21 18:00 Discontinued Medications Cefazolin Sodium (Cefazolin 1 Gm Vial) Confirm Administered Dose 2 gm .ROUTE .STK-MED ONE Stop: 08/14/21 06:16 Epinephrine HCl (Epinephrine 1 Mg/Ml Sdv) Confirm Administered Dose 1 mg .ROUTE .STK-MED ONE Stop: 08/14/21 06:14 Fentanyl (Fentanyl 100 Mcg/2 Ml Sdv) Confirm Administered Dose 100 mcg .ROUTE .STK-MED ONE Stop: 08/14/21 06:15 Midazolam HCl (Midazolam 1 Mg/Ml 2 Ml Sdv) Confirm Administered Dose 2 mg .ROUTE .STK-MED ONE Stop: 08/14/21 06:15 Propofol (Propofol 200 Mg/20 Ml Sdv) Confirm Administered Dose 600 mg .ROUTE .STK-MED ONE Stop: 08/14/21 06:16 Ropivacaine (Ropivacaine 0.5% 5 Mg/Ml 30 Ml Sdv) Confirm Administered Dose 30 ml .ROUTE .STK-MED ONE Stop: 08/14/21 06:14
[2021-08-14] MEDS ORDERED: Lidocaine 1%/Sod Bicarbonate in NS 8.4% 1 ML Syringe IDERM PRN (07:00)
[2021-08-14] MEDS ORDERED: Sodium Chloride 0.9% 10 ML Syringe FLUSH PRN (07:00)
[2021-08-14] MEDS ORDERED: HYDROmorphone 0.5 MG/0.5 ML Syringe IVPUSH PRN (07:28)
[2021-08-14] MEDS ORDERED: fentaNYL 100 MCG/2 ML SDV IVPUSH PRN (07:28)
[2021-08-14] MEDS ORDERED: Ondansetron 4 MG/2 ML SDV IVPUSH PRN (07:28)
[2021-08-14] MEDS ORDERED: Lactated Ringers 1,000 ML ONE (07:30)
[2021-08-14] MEDS ORDERED: Ketorolac 30 MG/ML SDV ONE (07:31)
[2021-08-14] MEDS ORDERED: Ondansetron 4 MG/2 ML SDV ONE (07:31)
[2021-08-14] MEDS: Morphine 8 MG, EPINEPHrine 0.3 MG, Cefuroxime 750 MG, Ketorolac 30 MG, Sodium Chloride ... PRN ×10 (08:00→08:20)
[2021-08-14] MEDS: Vancomycin 1 GM SDV ONE ×2 (08:02→08:29)
[2021-08-14] MEDS: Lactated Ringers 1,000 ML IV SCH ×2 (08:23→09:22)
--- NOTE | 2021-08-14 08:52 | PCM.POSTAN ---
POST ANESTHESIA ASSESSMENT - MENTAL STATUS Mental Status: Somnolent - VITAL SIGNS Vital Signs: Last Vital Signs Temp 98.0 F 08/14/21 06:39 Pulse 69 08/14/21 06:30 Resp 16 08/14/21 06:30 BP 148/74 H 08/14/21 06:30 Pulse Ox 97 08/14/21 06:30 0847 72 9 97.6 113/55 97% - RESPIRATORY Respiratory Status: Respiratory Rate WNL, Airway Patent, O2 Saturation Stable, Supplemental Oxygen - CARDIOVASCULAR CV Status: Pulse Rate WNL, Blood Pressure Stable - GASTROINTESTINAL GI Status: No Symptoms - PAIN Pain Score: 0 - POST OP HYDRATION Hydration Status: Adequate & Stable
--- NOTE | 2021-08-14 09:15 | PCM.SN.2 ---
- Free Text/Narrative Note: Right selective femoral nerve block at the adductor canal for post-procedure pain control under US guidance requested by Dr. Olivera. Date: 08/14/2021 Time Out: 902 Start: 903 End: 909 Chart reviewed. Consent signed. Questions answered. Appropriate monitors applied. Time out performed. Right mid-shaft femur identified with ultrasound, scanning medially of femur, the femoral artery in the adductor canal visualized, and the femoral nerve located laterally to the artery. The skin was prepped lateral to the ultrasound probe with chlorahexadine times two. The 20 ga 4 insulated block needle was inserted under direct ultrasound guidance into the adductor canal. 25mL of 0.5% ropivacaine with 1:200,000 epinephrine was injected circumferentially around the nerve with intermittent negative aspiration noted. Patient tolerated the procedure well. Sterile technique noted along with sterile gloves, mask, and sterile probe cover. See picture on progress note and vital signs on nurses notes. Block completed in PACU. Chad Rodriguez CRNA Time Documentation
[2021-08-14] MEDS ORDERED: oxyCODONE 5 MG Tab PO PRN (09:29)
--- NOTE | 2021-08-14 09:46 | CR ---
Right knee: AP and crosstable lateral views of the right knee were obtained. Comparison: Prior right knee CT study of 07/22/21. Knee prosthesis is noted. Patellar prosthesis is also seen. Components are aligned. Soft tissue air is noted. No underlying bony abnormality is seen. Impression: 1. Satisfactory postoperative radiographic appearance of recently placed right knee prostheses. Diagnostic code #2
--- NOTE | 2021-08-14 11:30 | PCM48HPAN ---
Post Anesthesia Note - EVALUATION WITHIN 48HRS OF ANESTHETIC Vital Signs in Normal Range: Yes Patient Participated in Evaluation: Yes Respiratory Function Stable: Yes Airway Patent: Yes Cardiovascular Function Stable: Yes Hydration Status Stable: Yes Pain Control Satisfactory: Yes Nausea and Vomiting Control Satisfactory: Yes Mental Status Recovered: Yes Vital Signs: Last Vital Signs Temp 97.0 F 08/14/21 09:38 Pulse 72 08/14/21 11:00 Resp 16 08/14/21 11:00 BP 142/68 H 08/14/21 11:00 Pulse Ox 98 08/14/21 11:00 - COMMENTS/OBSERVATIONS Free Text/Narrative:: ate- states feels pretty good. Going to go for a walk with PT
[2021-08-14 15:41] VITALS: BP 155/75; PULSE 74
--- NOTE | 2021-08-31 14:15 | PCM.OPNOTE ---
- General Post-Op/Procedure Note Date of Surgery/Procedure: 08/14/21 Operative Procedure(s): right total knee arthroplasty with [employer] robot[employer] Pre Op Diagnosis: right knee osteoarthrosis Post-Op Diagnosis: Same Anesthesia Technique: Local, MAC, Spinal Primary Surgeon: Esteban Olivera Anesthesia Provider: Chad Rodriguez Dredging Inspector: Lisa Perez Dredging Inspector: Lary Brennan EBL in mLs: 50 Complications: None Condition: Good Free Text/Narrative:: / 9mm 32x10
--- NOTE | 2021-08-31 14:49 | OR ---
DATE OF OPERATION: 08/14/2021 SURGEON: Esteban Olivera MD OPERATION PERFORMED: Right total knee arthroplasty with [place] [employer] robot[employer]. PREOPERATIVE DIAGNOSIS: Right knee osteoarthrosis. POSTOPERATIVE DIAGNOSIS: Right knee osteoarthrosis. ANESTHESIA: Local MAC with spinal. ANESTHESIA PROVIDER: Chad Rodriguez CRNA NEONATAL INTENSIVE CARE NURSE: Lisa Perez PA-C; and Lary Brennan LPN. ESTIMATED BLOOD LOSS: 50 mL. COMPLICATIONS: None. CONDITION: Stable. IMPLANTS: 1. Isis size 4 press-fit CR femur. 2. [place] size 4 press-fit tibial baseplate. 3. Isis size 4 9 mm CS polyethylene insert. 4. Isis size 32 x 10 mm press-fit asymmetric patella. DESCRIPTION OF PROCEDURE: The patient was identified in the preoperative holding area. Proper site was marked and identified by the surgeon. The patient was taken back to the operative theater, where after adequate anesthesia, a nonsterile tourniquet was applied to the right lower extremity. Right lower extremity was then sterilely prepped and draped in the usual sterile fashion. OR time-out was performed. The patient received 2 g IV Ancef. Leg martins was applied to the right lower extremity. Right lower extremity was then exsanguinated. Tourniquet was insufflated to 250 mmHg. Standard anterior incision was made. Medial parapatellar arthrotomy was created. Deep fibers of the MCL were raised and anterior fat pad was resected. Attention was turned to the patella. Patella measured 25 and was resected to a 14 for a 32 x 10 mm patella. Drill holes were drilled and found to have adequate bone. At this time, 2 4.0 Schanz pins were placed intraincisionally on the femur, 2 more were placed 3 fingerbreadths below the tibial tubercle. [place] [employer] robotic arrays were placed in both the femur and the tibia and checkpoints were applied on the femur and tibia. Hip center rotation was obtained. Mediolateral malleoli were marked. Check points were then marked. 40 points were obtained about the femur and the tibia for the [employer] robotic plan. At this time, the patient's knee was brought into full extension and 90 degrees of flexion. Varus valgus stresses were applied. At this time, the plan was undertaken for this patient to have symmetric flexion- extension gaps. Straight saw blade was brought in. Tibia was cut as well as the anterior femoral cut, anterior chamber cut, and posterior femoral cuts. Saw blade was then switched. Distal femoral cut was completed and posterior chamfer cuts. All bony fragments were removed. Medial and lateral meniscus were resected. Any posterior osteophytes and medial osteophytes were removed. At this time, a size 4 trial baseplate was placed on the tibia, size 4 trial femur was placed on the femur and a 9 mm trial spacer was placed. The patient had full extension and flexion. No varus-valgus instabilities and no signs of liftoff in the femur. At this time, drill holes were drilled on the femur. Tibia was stamped and drilled in proper rotation. Size 4 tibia was then impacted into place. A size 4 femur was impacted into place and a 9 mm CS polyethylene insert was impacted into place. The patient's knee was brought into full extension and a 32 x 10 mm patella was press-fit into place. Tourniquet was deflated. Bleeders were cauterized. 1 L pulse lavage irrigation with Ancef was irrigated through the knee along with 400 mL of IrriSept irrigation. Topical tranexamic acid and vancomycin powder were applied. Periarticular injection was completed. #2 barbed suture was used for closure of the medial parapatellar arthrotomy. 2-0 Vicryl and Stratafix were used for subcutaneous closure, and Prineo was used for skin closure. The patient had a sterile soft dressing applied and was sent to the PACU in stable condition. Please note, all [employer] robotic checkpoints and arrays were removed before closure. MMODAL /[id number]
== END 2021-08-14 13:45 | disposition home or self-care (01) ==
LOC: JD.SDS 06:11
PROVIDERS: ATTEND Orthopaedic Surgery
DX: M17.11 Unilateral primary osteoarthritis, right knee (principal); F17.210 Nicotine dependence, cigarettes, uncomplicated; J45.909 Unspecified asthma, uncomplicated; E78.5 Hyperlipidemia, unspecified; I10 Essential (primary) hypertension; G47.00 Insomnia, unspecified; E11.9 Type 2 diabetes mellitus without complications; Z79.899 Other long term (current) drug therapy; Z79.82 Long term (current) use of aspirin; Z98.890 Other specified postprocedural states
CPT/HCPCS: 27447; 73560; 97110; 97116; 97161; A9270; C1713; C1776; J0171; J0690; J0697; J1885; J2250; J2270; J2405; J2704; J2795; J3010; J3370; J7120; 01402; 64450; 76942

== ENCOUNTER 2024-05-24 11:12 | Emergency (ER) | payer BC ==
[2024-05-24 11:47] VITALS: PULSE 62
[2024-05-24 11:50] LABS: BASOPHILS PERCENT AUTO 0.1 % (0.0-1.0); EOSINOPHILS ABSOLUTE AUTO 0.2 K/mm3 (0.0-0.4); EOSINOPHILS PERCENT AUTO 2.4 % (0.0-6.0); HEMATOCRIT 41.1 % (42.0-52.0); HEMOGLOBIN 14.2 gm/dl (14.0-18.0); IMMATURE GRAN ABSOLUTE AUTO 0.05 K/mm3 (0.00-0.05); IMMATURE GRAN PERCENT AUTO 0.7 % (0.0-0.4); LYMPHOCYTES ABSOLUTE AUTO 1.2 K/mm3 (1.0-4.8); MEAN CORPUSCULAR HEMOGLOBIN 30.4 pg (28.0-32.0); MEAN CORPUSCULAR HGB CONC 34.5 g/dl (32.0-36.0); MEAN PLATELET VOLUME 8.2 fl (9.4-12.4); MONOCYTES ABSOLUTE AUTO 0.5 K/mm3 (0.0-0.8); MONOCYTES PERCENT AUTO 7.5 % (0.0-8.0); NEUTROPHILS ABSOLUTE AUTO 5.1 K/mm3 (1.8-7.7); NEUTROPHILS PERCENT AUTO 72.3 % (41.0-71.0); PLATELET COUNT,PLT 189 K/mm3 (150-400); RED BLOOD CELL COUNT 4.67 M/mm3 (4.52-5.90); WHITE BLOOD CELL COUNT,WBC 7.05 K/mm3 (3.9-11.3)
[2024-05-24 12:12] LABS: PROTHROMBIN TIME 10.6 SECONDS (9.7-12.0)
[2024-05-24 12:16] LABS: A/G RATIO 1.4 (1-2); ALBUMIN 4.1 g/dl (3.4-5.0); ANION GAP 13.2 (5-15); BILIRUBIN TOTAL 0.6 mg/dL (0.2-1.0); BUN/CREATININE RATIO 12.2 (14-18); CREATININE 0.9 mg/dL (0.7-1.3); EST CRCL DRUG DOSING (CG) 74.46 mL/min; POTASSIUM,K 4.2 mEq/L (3.5-5.1)
[2024-05-24] MEDS: Nitroglycerin 0.4 MG Tab.SL SL PRN (12:32)
[2024-05-24] MEDS: Sodium Chloride 0.9% 10 ML Syringe FLUSH PRN (12:33)
[2024-05-24] MEDS: Aspirin 81 MG Tab.Chew PO ONE ×2 (12:33→12:36)
[2024-05-24] MEDS ORDERED: methylPREDNISolone Sodium Succinate 125 MG/2 ML SDV IVPUSH ONE (12:35)
[2024-05-24] MEDS ORDERED: diphenhydrAMINE 50 MG/ML SDV IVPUSH ONE (12:35)
[2024-05-24 12:46] VITALS: BP 140/70
[2024-05-24] MEDS ORDERED: Nitroglycerin 0.4 MG Tab.SL SL PRN (13:03)
== END 2024-05-24 16:50 ==
LOC: JD.ED 11:12
DX: R07.89 Other chest pain (principal); R94.39 Abnormal result of other cardiovascular function study; I10 Essential (primary) hypertension; E11.40 Type 2 diabetes mellitus with diabetic neuropathy, unspecified; Z86.16 Personal history of COVID-19; Z79.899 Other long term (current) drug therapy; Z79.4 Long term (current) use of insulin; Z79.82 Long term (current) use of aspirin; Z91.048 Other nonmedicinal substance allergy status
CPT/HCPCS: 36415; 71045; 80053; 84484; 85025; 85610; 85730; 93005; 99285; A9270; J3490

== ENCOUNTER 2025-04-09 09:48 | Emergency (ER) | payer MEDICARE ==
[2025-04-09 10:12] VITALS: BP 165/81; PULSE 69
[2025-04-09] MEDS ORDERED: Sodium Chloride 0.9% 10 ML Syringe FLUSH PRN (10:31)
[2025-04-09 11:22] LABS: BASOPHILS PERCENT AUTO 0.1 % (0.0-1.0); EOSINOPHILS ABSOLUTE AUTO 0.2 K/mm3 (0.0-0.4); EOSINOPHILS PERCENT AUTO 3.5 % (0.0-6.0); HEMATOCRIT 43.9 % (42.0-52.0); HEMOGLOBIN 14.8 gm/dl (14.0-18.0); IMMATURE GRAN ABSOLUTE AUTO 0.03 K/mm3 (0.00-0.05); IMMATURE GRAN PERCENT AUTO 0.4 % (0.0-0.4); MEAN CORPUSCULAR HEMOGLOBIN 30.7 pg (28.0-32.0); MEAN CORPUSCULAR HGB CONC 33.7 g/dl (32.0-36.0); MEAN CORPUSCULAR VOLUME 91.1 fl (83.0-99.0); MEAN PLATELET VOLUME 8.6 fl (9.4-12.4); MONOCYTES ABSOLUTE AUTO 0.5 K/mm3 (0.0-0.8); MONOCYTES PERCENT AUTO 7.3 % (0.0-8.0); NEUTROPHILS ABSOLUTE AUTO 5.1 K/mm3 (1.8-7.7); NEUTROPHILS PERCENT AUTO 73.7 % (41.0-71.0); NRBC ABSOLUTE 0.02 (0.00-0.02); NRBC PERCENT 0.3 % (0.0-0.2); PLATELET COUNT,PLT 184 K/mm3 (150-400); RED BLOOD CELL COUNT 4.82 M/mm3 (4.52-5.90); WHITE BLOOD CELL COUNT,WBC 6.88 K/mm3 (3.9-11.3)
[2025-04-09] MEDS: Aspirin 81 MG Tab.Chew PO ONE (11:24)
[2025-04-09 11:58] LABS: A/G RATIO 1.4 (1-2); ALBUMIN 4.3 g/dl (3.4-5.0); ANION GAP 15.3 (5-15); BILIRUBIN TOTAL 0.6 mg/dL (0.2-1.0); BUN/CREATININE RATIO 16.7 (14-18); CALCIUM 9.9 mg/dL (8.5-10.1); CREATININE 0.9 mg/dL (0.7-1.3); EST CRCL DRUG DOSING (CG) 70.89 mL/min; MAGNESIUM 2.1 mg/dL (1.8-2.4); POTASSIUM,K 4.3 mEq/L (3.5-5.1); PROTEIN TOTAL,TP 7.3 g/dl (6.4-8.2)
== END 2025-04-09 12:57 | disposition home or self-care (01) ==
LOC: JD.ED 09:48
DX: R07.89 Other chest pain (principal); I10 Essential (primary) hypertension; E78.00 Pure hypercholesterolemia, unspecified; E11.9 Type 2 diabetes mellitus without complications; Z86.16 Personal history of COVID-19; Z87.891 Personal history of nicotine dependence; Z79.82 Long term (current) use of aspirin; Z79.01 Long term (current) use of anticoagulants; Z79.899 Other long term (current) drug therapy; Z91.048 Other nonmedicinal substance allergy status
CPT/HCPCS: 36415; 71045; 80053; 83735; 84484; 85025; 85379; 93005; 99285; A9270; 93010; 99284

== ENCOUNTER 2025-08-12 13:00 | Inpatient (IN) | payer MEDICARE ==
[2025-08-12] MEDS ORDERED: Sodium Chloride 0.9% 10 ML Syringe FLUSH PRN (13:12)
[2025-08-12] MEDS: Iopamidol 755 Mg/ML 100 ML Bottle IVPUSH ONE (13:28)
[2025-08-12 13:30] LABS: BASOPHILS ABSOLUTE AUTO 0.0 K/mm3 (0.0-0.2); BASOPHILS PERCENT AUTO 0.2 % (0.0-1.0); EOSINOPHILS ABSOLUTE AUTO 0.5 K/mm3 (0.0-0.4); EOSINOPHILS PERCENT AUTO 6.3 % (0.0-6.0); IMMATURE GRAN ABSOLUTE AUTO 0.04 K/mm3 (0.00-0.05); IMMATURE GRAN PERCENT AUTO 0.5 % (0.0-0.4); LYMPHOCYTES ABSOLUTE AUTO 1.2 K/mm3 (1.0-4.8); LYMPHOCYTES PERCENT AUTO 15.0 % (24.0-44.0); MEAN PLATELET VOLUME 8.3 fl (9.4-12.4); MONOCYTES ABSOLUTE AUTO 0.8 K/mm3 (0.0-0.8); MONOCYTES PERCENT AUTO 9.9 % (0.0-8.0); NEUTROPHILS ABSOLUTE AUTO 5.5 K/mm3 (1.8-7.7); NEUTROPHILS PERCENT AUTO 68.1 % (41.0-71.0); NRBC ABSOLUTE 0.00 (0.00-0.02); NRBC PERCENT 0.0 % (0.0-0.2); PLATELET COUNT,PLT 229 K/mm3 (150-400); RED BLOOD CELL COUNT 3.98 M/mm3 (4.52-5.90); WHITE BLOOD CELL COUNT,WBC 8.12 K/mm3 (3.9-11.3)
[2025-08-12 13:54] LABS: INR 1.05
[2025-08-12 13:56] LABS: PTT,PARTIAL THROMBOPLSTIN TIME 28.2 SECONDS (21.7-31.4)
[2025-08-12 14:12] LABS: A/G RATIO 1.0 (1-2); ALANINE AMINOTRANSFERASE,ALT 25.0 U/L (16-63); ASPARTATE AMNIOTRANSFERASE,AST 10.0 U/L (15-37); BILIRUBIN TOTAL 0.5 mg/dL (0.2-1.0); BLOOD UREA NITROGEN,BUN 18.0 mg/dL (7-18); CARBON DIOXIDE,CO2 28.0 mEq/L (21-32); CHLORIDE,CL 101.0 mEq/L (98-107); CREATININE 1.0 mg/dL (0.7-1.3); EST CRCL DRUG DOSING (CG) 63.8 mL/min; ESTIMATED GFR 82.0 mL/min (>60); GLUCOSE RANDOM 111.0 mg/dL (70-99); POTASSIUM,K 4.5 mEq/L (3.5-5.1); PROTEIN TOTAL,TP 6.7 g/dl (6.4-8.2); SODIUM,NA 137.0 mEq/L (136-145); TROPONIN I HIGH SENSITIVITY 6.0 pg/mL (<=76); TSH 0.685 uIU/mL (0.358-3.74)
[2025-08-12 14:22] LABS: ETHANOL BLOOD MEDICAL 0.0 gm% (0.00)
[2025-08-12 14:35] LABS: APPEARANCE,URINE CLEAR (Clear); GLUCOSE,URINE 2+ (Negative); OCCULT BLOOD,URINE NEGATIVE (Negative)
[2025-08-12 14:43] LABS: BUPRENORPHINE SCREEN,URINE NEGATIVE (CUTOFF=10); METHADONE SCREEN, URINE NEGATIVE (CUT0FF=200); METHAMPHETAMINES SCREEN, URINE NEGATIVE (CUTOFF=500); OXYCODONE SCREEN,URINE NEGATIVE (CUT0FF=100); THC SCREEN,URINE 20 NG/ML PRESUMPTIVE POSITIVE (CUTOFF=50)
[2025-08-12 14:46] LABS: AMPHETAMINES SCREEN, URINE NEGATIVE (CUTOFF=500)
[2025-08-12] MEDS: Insulin Lispro 100 Unit/ML 3 ML KwikPen SUBCUT ONE (18:50)
[2025-08-12] MEDS: Insulin Lispro 100 Unit/ML 3 ML KwikPen SUBCUT SCH (20:14)
[2025-08-13 07:54] LABS: BASOPHILS ABSOLUTE AUTO 0.0 K/mm3 (0.0-0.2); BASOPHILS PERCENT AUTO 0.2 % (0.0-1.0); EOSINOPHILS ABSOLUTE AUTO 0.4 K/mm3 (0.0-0.4); EOSINOPHILS PERCENT AUTO 3.4 % (0.0-6.0); IMMATURE GRAN ABSOLUTE AUTO 0.04 K/mm3 (0.00-0.05); IMMATURE GRAN PERCENT AUTO 0.3 % (0.0-0.4); LYMPHOCYTES ABSOLUTE AUTO 1.3 K/mm3 (1.0-4.8); LYMPHOCYTES PERCENT AUTO 11.1 % (24.0-44.0); MEAN PLATELET VOLUME 8.2 fl (9.4-12.4); MONOCYTES ABSOLUTE AUTO 0.8 K/mm3 (0.0-0.8); MONOCYTES PERCENT AUTO 7.2 % (0.0-8.0); NEUTROPHILS ABSOLUTE AUTO 9.1 K/mm3 (1.8-7.7); NEUTROPHILS PERCENT AUTO 77.8 % (41.0-71.0); NRBC ABSOLUTE 0.00 (0.00-0.02); NRBC PERCENT 0.0 % (0.0-0.2); PLATELET COUNT,PLT 236 K/mm3 (150-400); RED BLOOD CELL COUNT 4.50 M/mm3 (4.52-5.90); WHITE BLOOD CELL COUNT,WBC 11.67 K/mm3 (3.9-11.3)
[2025-08-13 08:17] LABS: A/G RATIO 1.1 (1-2); ALANINE AMINOTRANSFERASE,ALT 23.0 U/L (16-63); ASPARTATE AMNIOTRANSFERASE,AST 12.0 U/L (15-37); BILIRUBIN TOTAL 0.5 mg/dL (0.2-1.0); BLOOD UREA NITROGEN,BUN 15.0 mg/dL (7-18); CARBON DIOXIDE,CO2 27.0 mEq/L (21-32); CHLORIDE,CL 98.0 mEq/L (98-107); CHOLESTEROL HDL 44.0 mg/dL (40-59); CHOLESTEROL LDL DIRECT 35.0 mg/dL (<100); CHOLESTEROL TOTAL 95.0 mg/dL (<200); CREATININE 0.8 mg/dL (0.7-1.3); EST CRCL DRUG DOSING (CG) 79.75 mL/min; ESTIMATED GFR 96.0 mL/min (>60); GLUCOSE RANDOM 207.0 mg/dL (70-99); POTASSIUM,K 4.5 mEq/L (3.5-5.1); PROTEIN TOTAL,TP 7.4 g/dl (6.4-8.2); SODIUM,NA 136.0 mEq/L (136-145)
[2025-08-13] MEDS ORDERED: ASPIRIN 81 MG PO SCH (09:00)
[2025-08-13] MEDS: Insulin Lispro 100 Unit/ML 3 ML KwikPen SUBCUT SCH (09:00)
[2025-08-13 09:37] VITALS: PULSE 65
[2025-08-13] MEDS ORDERED: Insulin Lispro 100 Unit/ML 3 ML KwikPen SUBCUT SCH (11:30)
[2025-08-13] MEDS: Sodium Chloride 0.9% 10 ML Syringe FLUSH PRN (11:43)
[2025-08-13] MEDS: Gadobenate Dimeglumine 529 MG/ML 15 ML SDV IVPUSH ONE (11:43)
[2025-08-13 12:32] VITALS: BP 140/67
[2025-08-13] MEDS ORDERED: Fluticasone NASAL Spray 16 GM Bottle NASBOTH SCH (21:00)
== END 2025-08-13 14:01 | disposition home or self-care (01) | DRG 69 ==
LOC: JD.ED 13:00 → JD.MS 17:21
PROVIDERS: ADMIT Family Medicine; ATTEND Family Medicine
DX: G45.9 Transient cerebral ischemic attack, unspecified (principal); M54.9 Dorsalgia, unspecified; G89.29 Other chronic pain; E11.42 Type 2 diabetes mellitus with diabetic polyneuropathy; F41.9 Anxiety disorder, unspecified; I25.10 Atherosclerotic heart disease of native coronary artery without angina pectoris; E78.5 Hyperlipidemia, unspecified; I10 Essential (primary) hypertension; H91.90 Unspecified hearing loss, unspecified ear; R20.0 Anesthesia of skin; H54.7 Unspecified visual loss; I07.1 Rheumatic tricuspid insufficiency; I34.0 Nonrheumatic mitral (valve) insufficiency; E78.00 Pure hypercholesterolemia, unspecified; J45.909 Unspecified asthma, uncomplicated; Z96.659 Presence of unspecified artificial knee joint; Z86.16 Personal history of COVID-19; Z98.890 Other specified postprocedural states; Z95.5 Presence of coronary angioplasty implant and graft; Z79.82 Long term (current) use of aspirin; Z79.4 Long term (current) use of insulin; Z79.899 Other long term (current) drug therapy; Z87.891 Personal history of nicotine dependence
CPT/HCPCS: 36415; 70450; 70450-26; 70496; 70496-26; 70498; 70498-26; 70553; 70553-26; 80053; 80061; 80306; 80307; 81003; 82947; 83036; 83735; 84443; 84484; 85025; 85610; 85730; 93010; 93306; 96360; 97112-GP; 97116-GP; 97161-GP; 99222; 99238; 99285; 99285-25; A9270-GY; A9577; J7030; Q9967

== ENCOUNTER 2025-08-14 13:36 | Inpatient (IN) | payer MEDICARE ==
[2025-08-14] MEDS ORDERED: Sodium Chloride 0.9% 10 ML Syringe FLUSH PRN (13:47)
[2025-08-14 14:09] LABS: BASOPHILS ABSOLUTE AUTO 0.0 K/mm3 (0.0-0.2); BASOPHILS PERCENT AUTO 0.3 % (0.0-1.0); EOSINOPHILS ABSOLUTE AUTO 0.2 K/mm3 (0.0-0.4); EOSINOPHILS PERCENT AUTO 2.5 % (0.0-6.0); IMMATURE GRAN ABSOLUTE AUTO 0.04 K/mm3 (0.00-0.05); IMMATURE GRAN PERCENT AUTO 0.5 % (0.0-0.4); LYMPHOCYTES ABSOLUTE AUTO 1.2 K/mm3 (1.0-4.8); LYMPHOCYTES PERCENT AUTO 14.6 % (24.0-44.0); MEAN PLATELET VOLUME 8.3 fl (9.4-12.4); MONOCYTES ABSOLUTE AUTO 0.8 K/mm3 (0.0-0.8); MONOCYTES PERCENT AUTO 10.0 % (0.0-8.0); NEUTROPHILS ABSOLUTE AUTO 5.8 K/mm3 (1.8-7.7); NEUTROPHILS PERCENT AUTO 72.1 % (41.0-71.0); NRBC ABSOLUTE 0.00 (0.00-0.02); NRBC PERCENT 0.0 % (0.0-0.2); PLATELET COUNT,PLT 235 K/mm3 (150-400); RED BLOOD CELL COUNT 4.50 M/mm3 (4.52-5.90); WHITE BLOOD CELL COUNT,WBC 7.99 K/mm3 (3.9-11.3)
[2025-08-14] MEDS: Iopamidol 755 Mg/ML 100 ML Bottle IVPUSH ONE (14:10)
[2025-08-14] MEDS: Sodium Chloride 0.9% 10 ML Syringe FLUSH ONE (14:10)
[2025-08-14 14:25] LABS: INR 1.0
[2025-08-14 14:26] LABS: PTT,PARTIAL THROMBOPLSTIN TIME 26.3 SECONDS (21.7-31.4)
[2025-08-14 14:31] LABS: A/G RATIO 1.0 (1-2); ALANINE AMINOTRANSFERASE,ALT 25.0 U/L (16-63); ASPARTATE AMNIOTRANSFERASE,AST 14.0 U/L (15-37); BILIRUBIN TOTAL 0.6 mg/dL (0.2-1.0); BLOOD UREA NITROGEN,BUN 19.0 mg/dL (7-18); CARBON DIOXIDE,CO2 28.0 mEq/L (21-32); CHLORIDE,CL 101.0 mEq/L (98-107); CREATININE 1.0 mg/dL (0.7-1.3); EST CRCL DRUG DOSING (CG) 63.8 mL/min; ESTIMATED GFR 82.0 mL/min (>60); GLUCOSE RANDOM 244.0 mg/dL (70-99); POTASSIUM,K 4.8 mEq/L (3.5-5.1); PROTEIN TOTAL,TP 7.3 g/dl (6.4-8.2); SODIUM,NA 138.0 mEq/L (136-145); TROPONIN I HIGH SENSITIVITY 9.0 pg/mL (<=76)
[2025-08-14 14:32] LABS: ETHANOL BLOOD MEDICAL 0.0 gm% (0.00)
[2025-08-14] MEDS ORDERED: 50% Dextrose in Water 50 ML Syringe IVPUSH PRN (18:53)
[2025-08-14] MEDS: Insulin Lispro 100 Unit/ML 3 ML KwikPen SUBCUT SCH (21:39)
[2025-08-16] MEDS: Fluticasone NASAL Spray 16 GM Bottle NASBOTH SCH (03:50)
[2025-08-16] MEDS: Mirabegron 25 MG Tab Extended Release PO SCH (08:35)
[2025-08-16] MEDS: Atropine/Diphenoxylate 0.025-2.5 MG Tab PO SCH (20:30)
[2025-08-17 08:53] LABS: BASOPHILS ABSOLUTE AUTO 0.0 K/mm3 (0.0-0.2); BASOPHILS PERCENT AUTO 0.1 % (0.0-1.0); EOSINOPHILS ABSOLUTE AUTO 0.1 K/mm3 (0.0-0.4); EOSINOPHILS PERCENT AUTO 0.6 % (0.0-6.0); IMMATURE GRAN ABSOLUTE AUTO 0.05 K/mm3 (0.00-0.05); IMMATURE GRAN PERCENT AUTO 0.5 % (0.0-0.4); LYMPHOCYTES ABSOLUTE AUTO 0.7 K/mm3 (1.0-4.8); LYMPHOCYTES PERCENT AUTO 7.0 % (24.0-44.0); MEAN PLATELET VOLUME 8.3 fl (9.4-12.4); MONOCYTES ABSOLUTE AUTO 0.9 K/mm3 (0.0-0.8); MONOCYTES PERCENT AUTO 8.4 % (0.0-8.0); NEUTROPHILS ABSOLUTE AUTO 8.7 K/mm3 (1.8-7.7); NEUTROPHILS PERCENT AUTO 83.4 % (41.0-71.0); NRBC ABSOLUTE 0.00 (0.00-0.02); NRBC PERCENT 0.0 % (0.0-0.2); PLATELET COUNT,PLT 191 K/mm3 (150-400); RED BLOOD CELL COUNT 4.09 M/mm3 (4.52-5.90); WHITE BLOOD CELL COUNT,WBC 10.47 K/mm3 (3.9-11.3)
[2025-08-17 09:32] LABS: A/G RATIO 0.9 (1-2); ALANINE AMINOTRANSFERASE,ALT 24.0 U/L (16-63); ASPARTATE AMNIOTRANSFERASE,AST 15.0 U/L (15-37); BILIRUBIN TOTAL 0.8 mg/dL (0.2-1.0); BLOOD UREA NITROGEN,BUN 15.0 mg/dL (7-18); CARBON DIOXIDE,CO2 20.0 mEq/L (21-32); CHLORIDE,CL 100.0 mEq/L (98-107); CREATININE 0.9 mg/dL (0.7-1.3); EST CRCL DRUG DOSING (CG) 70.46 mL/min; ESTIMATED GFR 93.0 mL/min (>60); GLUCOSE RANDOM 321.0 mg/dL (70-99); POTASSIUM,K 4.4 mEq/L (3.5-5.1); PROTEIN TOTAL,TP 7.0 g/dl (6.4-8.2); SODIUM,NA 135.0 mEq/L (136-145)
[2025-08-20] MEDS: Insulin Glargine,Human Rec. Analog 100 Units/ML 3 ML Pen SUBCUT SCH (09:06)
[2025-08-21] MEDS: Insulin Glargine,Human Rec. Analog 100 Units/ML 3 ML Pen SUBCUT ONE (08:52)
[2025-08-21] MEDS ORDERED: Insulin Glargine,Human Rec. Analog 100 Units/ML 3 ML Pen SUBCUT SCH (09:00)
[2025-08-21] MEDS ORDERED: TADALAFIL 2.5 MG PO SCH (09:00)
[2025-08-21] MEDS: Insulin Glargine,Human Rec. Analog 100 Units/ML 3 ML Pen SUBCUT SCH (20:57)
[2025-08-22] MEDS ORDERED: Carboxymethylcellulose Sodium 1% Ophth Gel 15 ML Bottle EYEBOTH PRN (08:56)
[2025-08-23 13:06] VITALS: BP 140/73; PULSE 93
== END 2025-08-23 12:40 | disposition home or self-care (01) | DRG 65 ==
LOC: JD.ED 13:36 → JD.MS 17:51
PROVIDERS: ADMIT Family Medicine; ATTEND Internal Medicine
DX: R47.81 Slurred speech (principal); I63.9 Cerebral infarction, unspecified; G81.91 Hemiplegia, unspecified affecting right dominant side; E11.65 Type 2 diabetes mellitus with hyperglycemia; Z91.048 Other nonmedicinal substance allergy status; M21.371 Foot drop, right foot; E11.3599 Type 2 diabetes mellitus with proliferative diabetic retinopathy without macular edema, unspecified eye; F41.9 Anxiety disorder, unspecified; M54.9 Dorsalgia, unspecified; G89.29 Other chronic pain; I25.10 Atherosclerotic heart disease of native coronary artery without angina pectoris; E11.42 Type 2 diabetes mellitus with diabetic polyneuropathy; I10 Essential (primary) hypertension; E11.21 Type 2 diabetes mellitus with diabetic nephropathy; E78.00 Pure hypercholesterolemia, unspecified; H91.90 Unspecified hearing loss, unspecified ear; H54.7 Unspecified visual loss; J45.909 Unspecified asthma, uncomplicated; Z96.659 Presence of unspecified artificial knee joint; Z86.16 Personal history of COVID-19; Z98.890 Other specified postprocedural states; Z79.899 Other long term (current) drug therapy; Z95.5 Presence of coronary angioplasty implant and graft; Z79.4 Long term (current) use of insulin; Z87.891 Personal history of nicotine dependence
CPT/HCPCS: 36415; 70450; 70496; 70498; 80053; 80307; 82947; 83735; 84484; 85025; 85610; 85730; 93005; 96360; 96361; 99285; A9270 ×3; J7030; Q9967; 70551; 70551-26; 93010; 93246; 94760; 97110-GP; 97112-GP; 97116-GP; 97162-GP; 97530-GO; 97530-GP; 97535-GO; J1650; J1815-GY

== ENCOUNTER 2025-10-09 14:59 | Emergency (ER) | payer MEDICARE ==
[2025-10-09] MEDS ORDERED: Sodium Chloride 0.9% 10 ML Syringe FLUSH PRN (15:23)
[2025-10-09 15:31] LABS: BASOPHILS ABSOLUTE AUTO 0.0 K/mm3 (0.0-0.2); BASOPHILS PERCENT AUTO 0.2 % (0.0-1.0); EOSINOPHILS ABSOLUTE AUTO 0.3 K/mm3 (0.0-0.4); EOSINOPHILS PERCENT AUTO 3.3 % (0.0-6.0); IMMATURE GRAN ABSOLUTE AUTO 0.09 K/mm3 (0.00-0.05); IMMATURE GRAN PERCENT AUTO 1.1 % (0.0-0.4); LYMPHOCYTES ABSOLUTE AUTO 1.3 K/mm3 (1.0-4.8); LYMPHOCYTES PERCENT AUTO 16.0 % (24.0-44.0); MEAN PLATELET VOLUME 8.3 fl (9.4-12.4); MONOCYTES ABSOLUTE AUTO 0.7 K/mm3 (0.0-0.8); MONOCYTES PERCENT AUTO 8.1 % (0.0-8.0); NEUTROPHILS ABSOLUTE AUTO 5.8 K/mm3 (1.8-7.7); NEUTROPHILS PERCENT AUTO 71.3 % (41.0-71.0); NRBC ABSOLUTE 0.00 (0.00-0.02); NRBC PERCENT 0.0 % (0.0-0.2); PLATELET COUNT,PLT 199 K/mm3 (150-400); RED BLOOD CELL COUNT 4.27 M/mm3 (4.52-5.90); WHITE BLOOD CELL COUNT,WBC 8.18 K/mm3 (3.9-11.3)
[2025-10-09 15:37] LABS: INR 1.03
[2025-10-09 15:47] LABS: A/G RATIO 1.2 (1-2); ALANINE AMINOTRANSFERASE,ALT 21.0 U/L (16-63); ASPARTATE AMNIOTRANSFERASE,AST 14.0 U/L (15-37); BILIRUBIN TOTAL 0.5 mg/dL (0.2-1.0); BLOOD UREA NITROGEN,BUN 21.0 mg/dL (7-18); CARBON DIOXIDE,CO2 25.0 mEq/L (21-32); CHLORIDE,CL 101.0 mEq/L (98-107); CREATININE 0.9 mg/dL (0.7-1.3); EST CRCL DRUG DOSING (CG) 70.89 mL/min; ESTIMATED GFR 93.0 mL/min (>60); GLUCOSE RANDOM 178.0 mg/dL (70-99); POTASSIUM,K 4.1 mEq/L (3.5-5.1); PROTEIN TOTAL,TP 6.7 g/dl (6.4-8.2); SODIUM,NA 135.0 mEq/L (136-145); TROPONIN I HIGH SENSITIVITY 7.0 pg/mL (<=76)
[2025-10-09 15:53] LABS: ETHANOL BLOOD MEDICAL 0.0 gm% (0.00)
[2025-10-09 15:59] LABS: LACTIC ACID 1.1 mmol/L (0.4-2.0)
[2025-10-09] MEDS: Sodium Chloride 0.9% 10 ML Syringe FLUSH ONE (16:02)
[2025-10-09] MEDS: Iopamidol 612 MG/ML 100 ML Bottle IVPUSH ONE (16:02)
[2025-10-09] MEDS ORDERED: Naloxone 0.4 MG/ML SDV IVPUSH PRN ×2 (16:57→18:03)
[2025-10-09 17:25] LABS: APPEARANCE,URINE CLEAR (Clear); GLUCOSE,URINE 2+ (Negative); OCCULT BLOOD,URINE NEGATIVE (Negative)
[2025-10-09 17:32] LABS: BUPRENORPHINE SCREEN,URINE NEGATIVE (CUTOFF=10); METHADONE SCREEN, URINE NEGATIVE (CUT0FF=200); METHAMPHETAMINES SCREEN, URINE NEGATIVE (CUTOFF=500); OXYCODONE SCREEN,URINE NEGATIVE (CUT0FF=100); THC SCREEN,URINE 20 NG/ML PRESUMPTIVE POSITIVE (CUTOFF=50)
[2025-10-09 17:35] LABS: AMPHETAMINES SCREEN, URINE NEGATIVE (CUTOFF=500)
[2025-10-09] MEDS: Lidocaine 1% with EPINEPHrine 1:100,000 20 ML MDV INJECT ONE (19:08)
[2025-10-09] MEDS: Acetaminophen/oxyCODONE 325-5 MG Tab PO ONE (20:18)
[2025-10-09 20:25] VITALS: BP 115/68; PULSE 70
== END 2025-10-09 20:23 | disposition home or self-care (01) ==
LOC: JD.ED 14:59
DX: S01.111A Laceration without foreign body of right eyelid and periocular area, initial encounter (principal); I10 Essential (primary) hypertension; E11.40 Type 2 diabetes mellitus with diabetic neuropathy, unspecified; E78.00 Pure hypercholesterolemia, unspecified; J45.909 Unspecified asthma, uncomplicated; Z79.01 Long term (current) use of anticoagulants; Z79.899 Other long term (current) drug therapy; Z91.048 Other nonmedicinal substance allergy status; Z79.4 Long term (current) use of insulin; Z79.51 Long term (current) use of inhaled steroids; Z86.16 Personal history of COVID-19; W22.8XXA Striking against or struck by other objects, initial encounter
CPT/HCPCS: 12013; 36415; 70450; 71260; 72125; 72128; 72131; 74177; 80053; 80306; 80307; 81003; 82947; 83605; 83690; 84484; 85025; 85610; 86850; 86900; 86901; 93005; 96374; 96376; 99284; A9270; J2004; J2270; Q9967; 93010; J2003